=== PATIENT | male | born 1935 | race Caucasian/White ===

== ENCOUNTER 2018-09-16 18:53 | Emergency (ER) | payer MEDICARE, OTHER ==
[2018-09-16 19:42] LABS: #Basophils 0.2 thou/uL (0.0-0.2); #Lymphocytes 4.2 thou/uL (1.20-3.40); #Monocytes 1.3 thou/uL (0.11-0.59); #Neutrophils 5.9 thou/uL (1.40-6.50); %Basophils 1.3 % (0.0-1.0); %Eosinophils 8.1 % (0.0-10.0); %Lymphocytes 33.3 % (21.0-51.0); %Monocytes 10.4 % (0.0-10.0); %Neutrophils 46.9 % (42.0-75.0); Hemoglobin 13.7 g/dL (14.0-18.0); Mean Corpuscular HGB CONC 34.5 g/dL (32.0-36.0); Mean Corpuscular Hemoglobin 35.5 pg (27.0-31.0); Mean Platelet Volume 9.5 fL (7.4-10.4); Platelet Count 180 thou/uL (130-400); RBC Distribution Width 12.8 % (11.5-14.5); Red Blood Cell (RBC) Count 3.86 mill/uL (4.70-6.10); White Blood Cell (WBC) Count 12.5 thou/uL (4.8-10.8)
[2018-09-16 20:02] LABS: ALT (SGPT) 34 U/L (8-55); AST (SGOT) 25 U/L (5-34); Albumin 4.3 g/dL (3.4-4.8); Alkaline Phosphatase 73 U/L (40-150); Anion Gap 13 mmol/L (10-20); BUN (Urea Nitrogen) 30 mg/dL (8.4-25.7); Bilirubin, Total 1.5 mg/dL (0.2-1.2); CK (CPK) 75 U/L (30-200); Calc. Creatinine Clearance 0 mL/min (70-130); Calcium 9.3 mg/dL (7.8-10.44); Carbon Dioxide 27 mmol/L (23-31); Chloride 102 mmol/L (98-107); Estimated GFR-MDRD 65; Globulin 2.9 g/dL (2.4-3.5); Glucose 125 mg/dL (83-110); Potassium 3.9 mmol/L (3.5-5.1); Protein, Total 7.2 g/dL (5.8-8.1); Sodium 138 mmol/L (136-145)
--- NOTE | 2018-09-16 20:06 | RAD ---
2 views chest. HISTORY: Chest pain PA and lateral views of the chest obtained. Bilateral shoulder degenerative changes seen. No evidence of acute fractures, subluxations or bony lesion seen. The lungs are well aerated. No evidence of acute intrathoracic abnormality is noted. IMPRESSION: unremarkable 2 views chest.
== END 2018-09-17 00:40 ==
LOC: ERS 18:53
DX: R07.9 Chest pain, unspecified (principal); I10 Essential (primary) hypertension; E78.5 Hyperlipidemia, unspecified; Z87.891 Personal history of nicotine dependence; Z86.73 Personal history of transient ischemic attack (TIA), and cerebral infarction without residual deficits; Z79.82 Long term (current) use of aspirin; Z79.899 Other long term (current) drug therapy
CPT/HCPCS: 36415; 71046; 80053; 82550; 84484; 85025; 93005

== ENCOUNTER 2019-08-03 13:25 | Observation (INO) | payer MEDICARE, OTHER ==
[2019-08-03 14:08] LABS: #Basophils 0.2 thou/uL (0.0-0.2); #Eosinphils 0.3 thou/uL (0.0-0.7); #Lymphocytes 3.8 thou/uL (1.20-3.40); #Monocytes 1.3 thou/uL (0.11-0.59); #Neutrophils 5.9 thou/uL (1.40-6.50); %Basophils 1.5 % (0.0-1.0); %Eosinophils 2.2 % (0.0-10.0); %Lymphocytes 33.5 % (21.0-51.0); %Monocytes 11.6 % (0.0-10.0); %Neutrophils 51.2 % (42.0-75.0); Hemoglobin 13.2 g/dL (14.0-18.0); Mean Corpuscular HGB CONC 33.6 g/dL (32.0-36.0); Mean Platelet Volume 10.4 fL (7.4-10.4); Platelet Count 196 thou/uL (130-400); RBC Distribution Width 14.1 % (11.5-14.5); Red Blood Cell (RBC) Count 3.66 mill/uL (4.70-6.10); White Blood Cell (WBC) Count 11.4 thou/uL (4.8-10.8)
--- NOTE | 2019-08-03 14:10 | RAD ---
Chest one view HISTORY: Dyspnea. COMPARISON: 09/16/2018. FINDINGS: Cardiac silhouette is magnified by projection. Pulmonary vasculature is unremarkable. Mediastinum is midline with aortic calcification. No lobar consolidation or evidence of pneumothorax. Degenerative changes of the shoulders. desk monitor leads overlie the chest. IMPRESSION : Atherosclerosis. No active cardiopulmonary abnormalities are otherwise demonstrated.
[2019-08-03 14:24] LABS: Howell Jolly Bodies SLIGHT = 1-2 cells (100X) (None Seen); MDiff Complete? YES; Macrocytosis SLIGHT = 6-15 cells (100X) (0-5/hpf); Platelet Morphology Comment Appears Adequate; Schistocytes SLIGHT = 2-5 cells (100X) (0-1/hpf); Spherocytes SLIGHT = 1-5 cells (100X) (None Seen)
[2019-08-03 14:29] LABS: ALT (SGPT) 26 U/L (8-55); AST (SGOT) 21 U/L (5-34); Albumin 4.1 g/dL (3.4-4.8); Alkaline Phosphatase 76 U/L (40-110); Anion Gap 11 mmol/L (10-20); BUN (Urea Nitrogen) 25 mg/dL (8.4-25.7); Bilirubin, Total 1.4 mg/dL (0.2-1.2); Calc. Creatinine Clearance 0 mL/min (70-130); Calcium 9.4 mg/dL (7.8-10.44); Carbon Dioxide 30 mmol/L (23-31); Chloride 102 mmol/L (98-107); Estimated GFR-MDRD 69; Globulin 2.6 g/dL (2.4-3.5); Glucose 112 mg/dL (83-110); Potassium 3.9 mmol/L (3.5-5.1); Protein, Total 6.7 g/dL (5.8-8.1); Sodium 139 mmol/L (136-145)
[2019-08-03] MEDS ORDERED: Aspirin Chewable 81 MG TAB ONE (14:59)
--- NOTE | 2019-08-03 15:08 | PDOC.HOSPP ---
- Subjective Encounter Date: 08/03/19 Encounter Time: 13:45 - Objective Result Diagrams: 08/03/19 13:58 08/03/19 13:58
[2019-08-03 16:04] LABS: Base Excess-Venous 4.4 mmol/L (-2.0 to 3.0); Bicarbonate (HCO3v) 31.9 mmol/L (22.0-28.0); CO2 Tension (PvCO2) 59.4 mmHg (40.0-50.0); Calcium, Ionized 1.29 mmol/L (See Comments:); Chloride 100 mmol/L (98-107); Hemoglobin - Calc 13.3 g/dL (14.0-18.0); Potassium 4.5 mmol/L (3.5-5.1); Sodium 141 mmol/L (138-145); T. Carbon Dioxide 33.7 mmol/L (22.0-28.0); vO2 Saturation-calc 25.7 % (60.0-85.0)
[2019-08-03 18:04] VITALS: BMI 22.6
[2019-08-03 18:41] LABS: Troponin I 0.021 ng/mL (< 0.028)
[2019-08-03] MEDS ORDERED: Ondansetron PF 4 MG/2 ML Vial IVP PRN (19:27)
[2019-08-03] MEDS ORDERED: Ondansetron ODT 4 MG TAB PO PRN (19:27)
[2019-08-03] MEDS ORDERED: Calcium Carbonate 500 MG ChewTAB PO PRN (19:27)
[2019-08-03] MEDS ORDERED: Acetaminophen 325 MG TAB PO PRN (19:27)
[2019-08-03] MEDS ORDERED: Nitroglycerin 0.4 MG TAB (25 Tab Bottle) PO PRN (19:29)
[2019-08-03] MEDS ORDERED: hydrOXYzine 25 MG TAB PO PRN (19:31)
[2019-08-03] MEDS ORDERED: Artificial Tears 18 DROP/0.9 ML EA EYE PRN (19:32)
[2019-08-03] MEDS ORDERED: hydrALAZINE 20 MG/ML VIAL SLOW IVP PRN (19:33)
--- NOTE | 2019-08-03 19:33 | HP ---
PRIMARY CARE: [facility]. CHIEF COMPLAINT: Shortness of breath. HISTORY OF PRESENT ILLNESS: The patient is an 84-year-old male with coronary artery disease and hypertension, presented to the emergency room with above complaints. History obtained from the patient and the patient's daughter over the phone. The patient's daughter used to work as an RN in this hospital. Over the last 1 to 2 weeks, the patient developed gradual worsening shortness of breath. The shortness of breath got worse today. The shortness of breath gets worse on [id number] exertion. He also had some cough with minimal sputum. There was some questionable chest tightness earlier today. He denies any orthopnea, paroxysmal nocturnal dyspnea, or lower extremity swelling. No recent immobilization, travel, fever, chills, or sick contacts reported. In the emergency room, his initial vital signs showed temperature 98.1, respirations of 18, pulse of 72 with a blood pressure of 133/61, and O2 saturation 98% on room air. His EKG showed sinus bradycardia without significant ST-T wave changes. He is on aspirin and Plavix at home. A chest x-ray was negative for infiltrate or edema. PAST MEDICAL HISTORY: 1. Coronary artery disease status post stent placement in the past. He also had a repeat catheterization in August of 2018 at [facility]. His stents were patent. Nitroglycerin was added. Lipitor was increased from 20 to 40 at that time. 2. History of TIA in December of 2012. Plavix was added at that time. 3. History of herpes zoster. 4. Hypertension. 5. Hyperlipidemia. 6. Seasonal allergies. 7. Eczema. PAST SURGICAL HISTORY: 1. Cardiac stent placement in . 2. Cervical spine surgery. 3. Splenectomy. 4. Bilateral carpal tunnel surgery. 5. Multiple eye surgeries. FAMILY HISTORY: Mother with CVA and father with coronary artery disease. SOCIAL HISTORY: The patient is a former smoker. No alcohol or drug use. He currently lives at home with his family. He is full code. His daughter is the primary decision maker. CURRENT HOME MEDICATIONS: 1. Allopurinol 300 mg daily. 2. Aspirin 81 mg daily. 3. Lipitor 40 mg at bedtime. 4. Plavix 75 mg daily. 5. Hydrochlorothiazide 25 mg daily. 6. Lisinopril 20 mg daily. 7. Metoprolol 25 mg b.i.d. 8. Sublingual nitroglycerin as needed. 9. The patient is on several eyedrops as well. 10. Methotrexate 10 mg on Sundays. 11. Folic acid 1 mg from Sunday to Sunday. REVIEW OF SYSTEMS: All other review of systems was reviewed and were found. PHYSICAL EXAMINATION: VITAL SIGNS: As discussed above. GENERAL: An 84-year-old male, in no apparent distress. Denies any chest discomfort at this time. HEENT: Head, atraumatic and normocephalic. Sclerae anicteric. Moist mucous membranes. No oral lesion. NECK: Supple. No JVD. No carotid bruit. LUNGS: Clear to auscultation bilaterally. No wheezing, rales, or rhonchi. HEART: S1 and S2 present. Regular rate and rhythm. No rubs or gallops. ABDOMEN: Soft and nontender. Bowel sounds present. No rebound or guarding. No costovertebral angle tenderness. EXTREMITIES: No edema or calf tenderness. NEUROLOGIC: Grossly nonfocal. Moves all 4 extremities. Power was 5/5 in all extremities. SKIN: Warm and dry. LYMPH NODES: No palpable lymph nodes in the neck. PERIPHERAL VASCULAR: Radial pulses palpable bilaterally. MUSCULOSKELETAL: No joint swelling or tenderness. LABORATORY FINDINGS: 1. CBC showed WBC 11.4 with hemoglobin 13.2, hematocrit 39.2 with platelet of 196, and lymphocytes were normal. 2. VBG showed pH of 7.33 with pCO2 of 59.4 and pO2 of 19.2. 3. Chemistry showed sodium 139, potassium 3.9, chloride 102, bicarb 30, BUN 25, and creatinine 1.03. 4. EKG by my review as discussed above. Chest x-ray by my review as discussed above. IMPRESSION: 1. Chest discomfort with shortness of breath, rule out acute coronary syndrome. 2. Hypertension. 3. History of transient ischemic attack on aspirin and Plavix. 4. Hyperlipidemia. 5. Coronary artery disease status post stent placement. 6. Chronic kidney disease, stage 3. 7. Chronic eczema on methotrexate. 8. Glaucoma. 9. Gout. 10. Coronary artery disease status post stent placement. 11. Chronic anemia suspected due to nutritional deficiency. PLAN: 1. The patient will be monitored on the telemetry unit. Echocardiogram will be obtained. We will keep him n.p.o. past midnight. Serial troponins will be obtained. His home medications will be restarted. His last cardiac catheterization was less than 1 year ago. Continue aspirin and Plavix with beta blockers and statins. 2. The case was discussed with the patient and the daughter in detail. They stated understanding. Job ID: [id number]
[2019-08-03] MEDS: Metoprolol Tartrate 25 MG TAB PO SCH (20:08)
[2019-08-03] MEDS: DorzolamidE/Timolol 2%/0.5% Ophth Soln 10 ml Bottle EA EYE SCH (20:09)
[2019-08-03 20:52] LABS: Troponin I Less than 0.010 ng/mL (< 0.028)
[2019-08-03] MEDS ORDERED: Betamethasone 0.1% Cream 15 GM TUBE TOP SCH (21:00)
[2019-08-03] MEDS ORDERED: [UNRECOGNIZED DRUG - OTHER] EA EYE SCH (21:00)
[2019-08-03] MEDS ORDERED: Clopidogrel Bisulfate 75 MG TAB PO SCH (21:00)
[2019-08-03] MEDS ORDERED: Latanoprost 0.005% Ophth Soln 2.5 ml Bottle EA EYE SCH (21:00)
[2019-08-03] MEDS ORDERED: Atorvastatin Calcium 40 MG TAB PO SCH (21:00)
[2019-08-04] MEDS ORDERED: Fluticasone Propionate Nasal Spray 16 gm Bottle NASAL SCH (09:00)
[2019-08-04] MEDS ORDERED: Allopurinol 300 MG TAB PO SCH (09:00)
[2019-08-04] MEDS ORDERED: Aspirin Chewable 81 MG TAB PO SCH (09:00)
[2019-08-04] MEDS ORDERED: Folic Acid 1 MG TAB PO SCH (09:00)
[2019-08-04] MEDS ORDERED: Fish Oil 1,000 MG CAP PO SCH (09:00)
[2019-08-04] MEDS ORDERED: Lisinopril 20 MG TAB PO SCH (09:00)
--- NOTE | 2019-08-04 12:27 | NM ---
EXAM: NM Cardiac Stress W EF WF PROVIDED CLINICAL HISTORY: Chest pain COMPARISON: None FINDINGS: There is a small defect seen in the anterior left ventricular wall on the stress acquisition with sug gestion of mild reversibility on resting acquisition. Quantitative analysis does not show significant reversible defect. Gated images show normal ventricular wall motion and wall thickening. Calculated left ventricular ejection fraction is calculated at 62%. IMPRESSION: 1. Equivocal myocardial perfusion study with a small area of mild ischemia involving the anterior lef t ventricular wall. 2. Normal LVEF.
[2019-08-04] MEDS: Metoprolol Tartrate 25 MG TAB PO SCH (12:28)
[2019-08-04] MEDS: DorzolamidE/Timolol 2%/0.5% Ophth Soln 10 ml Bottle EA EYE SCH (12:30)
[2019-08-04] MEDS ORDERED: Regadenoson 0.4 MG/5 ML SYRINGE ONE (14:09)
[2019-08-04 16:00] VITALS: BP 157/67; TEMP 98.6
--- NOTE | 2019-08-04 18:43 | CON ---
DATE OF CONSULTATION: 08/04/2019 REASON FOR CONSULTATION: Chest pain. PRIMARY LIVESTOCK FARMER: None. HISTORY OF PRESENT ILLNESS: Mr. Elizalde is a very pleasant 84-year-old gentleman with history of CAD, status post stent placement. This occurred several years ago per patient. His [facility]. He states he underwent coronary angiography in spring of last year at the [place]. He was found to have patent stents. No further intervention recommended per patient. He recently presented with shortness of breath and mild chest pressure. Pain was not exertion related. His CK troponin was negative. PAST MEDICAL HISTORY: CAD, status post stent placement; herpes zoster; hypertension; hyperlipidemia; seasonal allergies; stent placement; splenectomy; and eye surgery. HOME MEDICATIONS: Reviewed. 1. Allopurinol. 2. Aspirin. 3. Lipitor. 4. Plavix. 5. Hydrochlorothiazide. 6. Lisinopril. 7. Metoprolol. 8. Methotrexate. 9. Folic acid. FAMILY HISTORY: Negative for CAD. SOCIAL HISTORY: Previous tobacco use. REVIEW OF SYSTEMS: A 10-point review of systems is reviewed and is as above, otherwise negative. PHYSICAL EXAMINATION: GENERAL: Patient is a pleasant male who is in no acute distress. The patient appears their stated age. VITAL SIGNS: Blood pressure 120/70, pulse 80, and respirations 20. NEUROLOGIC: The patient is alert and oriented x3 with no focal neurologic deficits. HEENT: Sclerae without icterus. Mouth has moist mucous membranes with normal pallor. NECK: No JVD. Carotid upstroke brisk. No bruits bilaterally. LUNGS: Clear to auscultation with unlabored respirations. BACK: No scoliosis or kyphosis. CARDIAC: Regular rate and rhythm with normal S1 and S2. No S3 or S4 noted. No significant rubs, murmurs, thrills, or gallops noted throughout the precordium. PMI is not displaced. There is no parasternal heave. ABDOMEN: Soft, nontender, nondistended. No peritoneal signs present. No hepatosplenomegaly. No abnormal striae. EXTREMITIES: 2+ femoral and 2+ dorsalis pedis pulses. No cyanosis, clubbing, or edema. SKIN: No gross abnormalities. DIAGNOSTIC STUDIES: Stress and rest myocardial perfusion study small area of questionable mild ischemia along the anterior wall with normal LVEF. IMPRESSION: 1. Atypical chest pain. 2. Coronary artery disease. 3. Status post stent placement. RECOMMENDATIONS: Mr. Elizalde's symptoms are not felt to be consistent with angina. He had an angiogram performed last year with patent stents per patient. His stress study as most is felt to be low risk given a mild area of ischemia and a small distribution. We would recommend continue medical therapy. Add Imdur 30 mg p.o. q.a.m. Continue Plavix in addition to aspirin and beta gen therapy. Plan is to follow up Mr. Elizalde as an outpatient in 1 to 2 weeks. Job ID: [id number]
--- NOTE | 2019-08-04 19:12 | DIS ---
DATE OF ADMISSION: 08/03/2019 DATE OF DISCHARGE: 08/04/2019 DISCHARGE DISPOSITION: Home. FOLLOWUP: 1. Follow up with primary care physician at the [facility] in 1 week. 2. Follow up with Dr. Chau in 1 week. ALLERGIES: THE PATIENT IS ALLERGIC TO MORPHINE. DISCHARGE MEDICATIONS: Isosorbide mononitrate 30 mg daily, all other home medications were left unchanged. INPATIENT ORTHOPEDIC SHOE FITTER: Cardiology, Dr. Chau. BRIEF HOSPITAL COURSE: The patient is an 84-year-old male with coronary artery disease, status post stent placement, presented to the emergency room with chest discomfort along with shortness of breath. Please refer to the history and physical for further details. The patient was admitted to the hospital with a diagnosis of chest discomfort, rule out acute coronary syndrome. His serial troponins were negative. He underwent an echocardiogram that showed ejection fraction 55% to 60% with mild concentric left ventricular hypertrophy and diastolic dysfunction. It also showed mild mitral regurgitation and mild tricuspid regurgitation. A Cardiolite stress test was performed that showed a small area of mild ischemia involving the anterior left ventricular wall. He was evaluated by Cardiology. Isosorbide mononitrate was added. He was advised to continue his aspirin and Plavix along with beta blockers and statins. He has been cleared by Cardiology for discharge. FINAL DIAGNOSES: 1. Chest discomfort, acute coronary syndrome ruled out. 2. Abnormal stress test. 3. Hypertension. 4. History of transient ischemic attack, on aspirin and Plavix. 5. Hyperlipidemia. 6. Coronary artery disease, status post stent placement. 7. Chronic kidney disease, stage 3. 8. Chronic eczema, on methotrexate. 9. Glaucoma. 10. Gout. 11. History of coronary artery disease, status post stent placement. 12. Chronic anemia, suspected due to nutritional deficiency. 13. Chronic diastolic heart failure. 14. Mild mitral regurgitation. 15. Mild tricuspid regurgitation. The patient and the family understands the plan of care. Job ID: [id number]
--- NOTE | 2019-08-06 14:08 | EKG ---
Test Reason : SOB Blood Pressure : / mmHG Vent. Rate : 052 BPM Atrial Rate : 052 BPM P-R Int : 144 ms QRS Dur : 104 ms QT Int : 432 ms P-R-T Axes : 027 034 050 degrees QTc Int : 401 ms Sinus bradycardia Otherwise normal ECG Confirmed by PUSHPA THOMPSON ([id number]), assignment editor DAHIANA HURST ([id number]) on 08/06/2019 2:08:12 PM Referred By: ANITA Confirmed By:PUSHPA Walker
[2019-08-10] MEDS ORDERED: Methotrexate Sodium 2.5 MG TAB PO SCH (09:00)
== END 2019-08-04 16:41 | disposition home or self-care (01) ==
LOC: ERS 13:25 → 2SW 17:29
PROVIDERS: ADMIT Internal Medicine; ATTEND Internal Medicine
DX: R07.89 Other chest pain (principal); R06.02 Shortness of breath; I13.0 Hypertensive heart and chronic kidney disease with heart failure and stage 1 through stage 4 chronic kidney disease, or unspecified chronic kidney disease; I50.32 Chronic diastolic (congestive) heart failure; N18.3 Chronic kidney disease, stage 3 (moderate); I25.10 Atherosclerotic heart disease of native coronary artery without angina pectoris; I08.1 Rheumatic disorders of both mitral and tricuspid valves; D64.9 Anemia, unspecified; E78.5 Hyperlipidemia, unspecified; L30.9 Dermatitis, unspecified; H40.9 Unspecified glaucoma; M10.9 Gout, unspecified; Z79.82 Long term (current) use of aspirin; Z79.899 Other long term (current) drug therapy; Z86.73 Personal history of transient ischemic attack (TIA), and cerebral infarction without residual deficits; Z87.891 Personal history of nicotine dependence; Z95.5 Presence of coronary angioplasty implant and graft; Z88.5 Allergy status to narcotic agent
CPT/HCPCS: 36415; 71045; 78452; 80053; 82330; 82803; 83880; 84484; 85025; 93005; 93017; 93306; A9500; G0378; J2785

== ENCOUNTER 2019-08-05 19:43 | Emergency (ER) | payer MEDICARE, OTHER ==
[2019-08-05 20:37] LABS: #Basophils 0.2 thou/uL (0.0-0.2); #Eosinphils 0.5 thou/uL (0.0-0.7); #Lymphocytes 4.9 thou/uL (1.20-3.40); #Monocytes 1.5 thou/uL (0.11-0.59); #Neutrophils 6.2 thou/uL (1.40-6.50); %Basophils 1.6 % (0.0-1.0); %Eosinophils 3.9 % (0.0-10.0); %Lymphocytes 36.6 % (21.0-51.0); %Monocytes 11.4 % (0.0-10.0); %Neutrophils 46.6 % (42.0-75.0); Mean Corpuscular HGB CONC 33.7 g/dL (32.0-36.0); Mean Corpuscular Hemoglobin 35.9 pg (27.0-31.0); Mean Platelet Volume 10.5 fL (7.4-10.4); Platelet Count 178 thou/uL (130-400); RBC Distribution Width 14.2 % (11.5-14.5); Red Blood Cell (RBC) Count 3.35 mill/uL (4.70-6.10); White Blood Cell (WBC) Count 13.3 thou/uL (4.8-10.8)
[2019-08-05 20:58] LABS: ALT (SGPT) 31 U/L (8-55); AST (SGOT) 27 U/L (5-34); Albumin 3.7 g/dL (3.4-4.8); Alkaline Phosphatase 67 U/L (40-110); Anion Gap 12 mmol/L (10-20); BUN (Urea Nitrogen) 37 mg/dL (8.4-25.7); Bilirubin, Total 0.7 mg/dL (0.2-1.2); CK (CPK) 49 U/L (30-200); Calc. Creatinine Clearance 0 mL/min (70-130); Calcium 8.3 mg/dL (7.8-10.44); Carbon Dioxide 28 mmol/L (23-31); Chloride 102 mmol/L (98-107); Estimated GFR-MDRD 53; Globulin 2.6 g/dL (2.4-3.5); Glucose 96 mg/dL (83-110); Protein, Total 6.3 g/dL (5.8-8.1); Sodium 138 mmol/L (136-145)
--- NOTE | 2019-08-05 21:00 | RAD ---
PORTABLE CHEST: 08/05/19 PROVIDED CLINICAL HISTORY: Shortness of breath. FINDINGS: The cardiac and mediastinal silhouette appears within normal limits. No focal consolidation, pleural fluid or pneumothorax apparent. IMPRESSION: No evidence for an acute cardiomediastinal process. POS: RADHA
--- NOTE | 2019-08-06 13:27 | EKG ---
Test Reason : Blood Pressure : / mmHG Vent. Rate : 065 BPM Atrial Rate : 065 BPM P-R Int : 144 ms QRS Dur : 090 ms QT Int : 410 ms P-R-T Axes : 039 037 065 degrees QTc Int : 426 ms Normal sinus rhythm Normal ECG Confirmed by THIERRY HERNÁNDEZ, GENA Medellin ([id number]), supervising editor news reel DAHIANA HURST ([id number]) on 08/06/2019 1:27:01 PM Referred By: Confirmed By:GENA GUADARRAMA MD
== END 2019-08-05 21:50 | disposition home or self-care (01) ==
LOC: ERS 19:43
DX: R06.02 Shortness of breath (principal); E78.5 Hyperlipidemia, unspecified; E78.00 Pure hypercholesterolemia, unspecified; I10 Essential (primary) hypertension; Z86.73 Personal history of transient ischemic attack (TIA), and cerebral infarction without residual deficits; Z87.891 Personal history of nicotine dependence; Z79.82 Long term (current) use of aspirin; Z79.899 Other long term (current) drug therapy
CPT/HCPCS: 36415; 71045; 80053; 82550; 83880; 84484; 85025; 93005

== ENCOUNTER 2019-08-11 10:15 | Emergency (ER) | payer OTHER ==
[2019-08-11 11:31] LABS: #Basophils 0.1 thou/uL (0.0-0.2); #Eosinphils 0.5 thou/uL (0.0-0.7); #Lymphocytes 2.9 thou/uL (1.20-3.40); #Monocytes 1.4 thou/uL (0.11-0.59); #Neutrophils 6.3 thou/uL (1.40-6.50); %Basophils 1.2 % (0.0-1.0); %Eosinophils 4.5 % (0.0-10.0); %Lymphocytes 25.7 % (21.0-51.0); %Monocytes 12.2 % (0.0-10.0); %Neutrophils 56.5 % (42.0-75.0); Mean Corpuscular HGB CONC 31.7 g/dL (32.0-36.0); Mean Corpuscular Hemoglobin 34.4 pg (27.0-31.0); Mean Platelet Volume 10.5 fL (7.4-10.4); Platelet Count 184 thou/uL (130-400); RBC Distribution Width 14.2 % (11.5-14.5); Red Blood Cell (RBC) Count 3.48 mill/uL (4.70-6.10); White Blood Cell (WBC) Count 11.2 thou/uL (4.8-10.8)
--- NOTE | 2019-08-11 11:36 | RAD ---
RADIOGRAPH CHEST 1 VIEW: DATE: 08/11/2019 HISTORY: 84-year-old male with dyspnea FINDINGS: There is no airspace density, pulmonary edema, or pneumothorax. The lateral costophrenic angles are n ot effaced. IMPRESSION: No acute pulmonary findings.
[2019-08-11 11:51] LABS: ALT (SGPT) 27 U/L (8-55); AST (SGOT) 22 U/L (5-34); Albumin 3.7 g/dL (3.4-4.8); Alkaline Phosphatase 68 U/L (40-110); Anion Gap 12 mmol/L (10-20); BUN (Urea Nitrogen) 27 mg/dL (8.4-25.7); Bilirubin, Total 0.8 mg/dL (0.2-1.2); Calc. Creatinine Clearance 0 mL/min (70-130); Carbon Dioxide 23 mmol/L (23-31); Chloride 106 mmol/L (98-107); Estimated GFR-MDRD 74; Globulin 2.9 g/dL (2.4-3.5); Glucose 102 mg/dL (83-110); Potassium 4.2 mmol/L (3.5-5.1); Protein, Total 6.6 g/dL (5.8-8.1); Sodium 137 mmol/L (136-145)
[2019-08-11] MEDS ORDERED: Iopamidol 370 76% 100 ML VIAL ONE (11:54)
--- NOTE | 2019-08-11 13:54 | CT ---
Exam: CT angiogram of the chest HISTORY: Shortness of breath. COMPARISON: None TECHNIQUE: CT angiogram of the chest is performed in the axial plane. Three-dimensional reformatted i mages are submitted for interpretation FINDINGS: Mediastinum: No mass, lymphadenopathy or hematoma. HEART: Normal size. No significant pericardial fluid. There are coronary artery calcifications. Aorta: No aneurysm or dissection Upper solid abdominal viscera: No acute abnormality. 1.6 x 1.3 cm left renal cortical cyst Trachea and central bronchi: Patent Pleural spaces: No pleural effusion. Lung parenchyma: Chronic changes in the lung parenchyma. Lung nodules: Right lung: Solid nodule with spiculation in the right lower lobe measuring 0.6 x 0.5 c m. Left lung: No suspicious masses or nodules. Linear scarring in the left upper lobe. Pneumothorax: None Osseous structures: No lytic or blastic lesions Pulmonary arteries: Adequate contrast opacification pulmonary arterial system to the level of segment al arteries. No filling defect to suggest pulmonary embolism IMPRESSION: 1. No evidence of pulmonary artery embolism to the level of the segmental arteries. 2. Solid nodule in the right lower lobe. Code lung nodule
== END 2019-08-11 15:35 | disposition home or self-care (01) ==
LOC: ERS 10:15
DX: R06.00 Dyspnea, unspecified (principal); Z20.828 Contact with and (suspected) exposure to other viral communicable diseases; E78.5 Hyperlipidemia, unspecified; E78.00 Pure hypercholesterolemia, unspecified; Z86.73 Personal history of transient ischemic attack (TIA), and cerebral infarction without residual deficits; I10 Essential (primary) hypertension; Z87.891 Personal history of nicotine dependence; Z79.899 Other long term (current) drug therapy; Z79.82 Long term (current) use of aspirin
CPT/HCPCS: 36415; 71045; 71275; 80053; 83880; 84484; 85025; 85379; 87635; 93005; Q9967; U0003

== ENCOUNTER 2019-08-15 16:46 | Emergency (ER) | payer OTHER, MEDICAID ==
--- NOTE | 2019-08-15 18:34 | RAD ---
CHEST ONE VIEW: 08/15/19 HISTORY: Chest pain. COMPARISON: Radiograph 08/11/2019. FINDINGS: High grade degenerative disease of both glenohumeral joints with subacromial space narrowing. Heart s ize is enlarged. No confluent air space consolidation, pneumothorax or effusion. IMPRESSION: No acute intrathoracic abnormality. Chronic findings. POS: HOME
== END 2019-08-15 19:27 | disposition home or self-care (01) ==
LOC: ERS 16:46
DX: R07.89 Other chest pain (principal); E78.5 Hyperlipidemia, unspecified; E78.00 Pure hypercholesterolemia, unspecified; I10 Essential (primary) hypertension; Z87.891 Personal history of nicotine dependence; Z86.73 Personal history of transient ischemic attack (TIA), and cerebral infarction without residual deficits; Z79.82 Long term (current) use of aspirin; Z79.899 Other long term (current) drug therapy
CPT/HCPCS: 71045; 93005

== ENCOUNTER 2019-08-17 23:29 | Emergency (ER) | payer MEDICAID, MEDICARE, OTHER ==
[2019-08-18 00:22] LABS: Eosinophils 4 % (0-10); Hemoglobin 12.4 g/dL (14.0-18.0); Lymphocytes 33 % (21-51); MDiff Complete? YES; Mean Corpuscular Hemoglobin 35.9 pg (27.0-31.0); Mean Platelet Volume 10.6 fL (7.4-10.4); Monocytes 13 % (0-10); Neutrophil 50 % (42-75); Platelet Count 197 thou/uL (130-400); Platelet Morphology Comment Appears Adequate; RBC Distribution Width 14.1 % (11.5-14.5); Red Blood Cell (RBC) Count 3.44 mill/uL (4.70-6.10)
[2019-08-18 00:41] LABS: ALT (SGPT) 32 U/L (8-55); AST (SGOT) 25 U/L (5-34); Albumin 4.2 g/dL (3.4-4.8); Alkaline Phosphatase 71 U/L (40-110); Anion Gap 12 mmol/L (10-20); BUN (Urea Nitrogen) 25 mg/dL (8.4-25.7); Bilirubin, Total 0.7 mg/dL (0.2-1.2); Calc. Creatinine Clearance 0 mL/min (70-130); Calcium 8.8 mg/dL (7.8-10.44); Carbon Dioxide 26 mmol/L (23-31); Chloride 104 mmol/L (98-107); Estimated GFR-MDRD 58; Globulin 2.5 g/dL (2.4-3.5); Glucose 96 mg/dL (83-110); Potassium 3.8 mmol/L (3.5-5.1); Protein, Total 6.7 g/dL (5.8-8.1); Sodium 138 mmol/L (136-145)
== END 2019-08-18 01:16 | disposition home or self-care (01) ==
LOC: ERS 23:29
DX: R06.00 Dyspnea, unspecified (principal); E78.5 Hyperlipidemia, unspecified; E78.00 Pure hypercholesterolemia, unspecified; I10 Essential (primary) hypertension; Z87.891 Personal history of nicotine dependence; Z86.73 Personal history of transient ischemic attack (TIA), and cerebral infarction without residual deficits; Z79.899 Other long term (current) drug therapy; Z79.82 Long term (current) use of aspirin
CPT/HCPCS: 36415; 80053; 83880; 84484; 85025; 93005

== ENCOUNTER 2019-11-18 23:39 | Emergency (ER) | payer MEDICAID, MEDICARE, OTHER ==
--- NOTE | 2019-11-19 07:10 | CT ---
PRELIMINARY REPORT/[facility]/EMERGENCY AFTER HOURS PROCEDURE: EXAM: CT Cervical Spine Without Intravenous Contrast. CLINICAL HISTORY: MECHANICAL FALL INTO BATHTUB. HIT BACK OF HEAD ON TILE. TAKES PLAVIX. DENIES N/V S/P HITTING HEAD. DE NIES LOC. HAS METAL RODS IN NECK PLACED "YEARS AGO". TECHNIQUE: Axial computed tomography images of the cervical spine without intravenous contrast. Sagittal and cor onal reformations performed. COMPARISON: None provided. FINDINGS: BONES: No acute fracture or focal osseous lesion. Bony alignment is anatomic. The vertebral body cages present from C4-C6. Anterior spinal fusion mathieu dware from C6-C7. Posterior paraspinal hardware from C3-C7. There is fusion of the posterior elemen ts. DISCS / DEGENERATIVE CHANGES: Mild disc narrowing and osteophytosis at C2-C3, C6-C7, and C7-T1. Mild central stenosis and moderate right foraminal stenosis at C2-C3. Mild central stenosis at C3-C4 . Moderate bilateral foraminal stenosis at C4-C5. Moderate right-sided foraminal stenosis at C5-C6. Moderate bilateral foraminal stenosis at C6-C7. Moderate bilateral foraminal stenosis at C7-T1. SOFT TISSUES: No prevertebral soft tissue swelling. No apical pneumothorax. IMPRESSION: No acute cervical spine fracture or dislocation. ELECTRONICALLY SIGNED BY: Tony Castillo MD Nov 19, 2019 12:32:12 AM CDT This report is intended for review by the ordering physician only, in accordance of law. If you recei ve this report in error, please call [facility] at [phone]. FINAL REPORT EMERGENCY AFTER HOURS CT OF THE CERVICAL SPINE WITHOUT CONTRAST: FINDINGS/IMPRESSION: I agree with the findings and impression given in the preliminary report per [facility] physici an. There are extensive postoperative changes of the cervical spine without acute osseous abnormality. POS: EAA
--- NOTE | 2019-11-19 07:12 | CT ---
PRELIMINARY REPORT/[facility]/EMERGENCY AFTER HOURS PROCEDURE: EXAM: CT Head Without Intravenous Contrast. CLINICAL HISTORY: MECHANICAL FALL INTO BATHTUB. HIT BACK OF HEAD ON TILE. TAKES PLAVIX. DENIES N/V S/ P HITTING HEAD. DENIES LOC. HAS METAL RODS IN NECK PLACED "YEARS AGO". TECHNIQUE: Axial computed tomography images of the head/brain without intravenous contrast. COMPARISON: None provided. FINDINGS: BRAIN: No acute intraparenchymal hemorrhage. No mass lesion. No CT evidence for acute territorial infarct. N o midline shift. Bifrontal hypodense CSF density fluid collections measuring up to 8 mm bilaterally. Mild generalized cerebral atrophy. Arteriosclerosis. ORBITS: The orbits are unremarkable. SINUSES AND MASTOIDS: Opacification of several ethmoid air cells. The other paranasal sinuses and mastoid air cells are cl ear. SOFT TISSUES: No significant facial or scalp soft tissue swelling evident. No radiopaque foreign body is seen. BONES: No acute skull fracture. IMPRESSION: No acute intracranial abnormality. CSF density bifrontal extra axial fluid collections which may represent CSF hygromas. Mild generalized cerebral atrophy. Inflammatory changes in the ethmoid air cells. ELECTRONICALLY SIGNED BY: Tony Castillo MD Nov 19, 2019 12:27:28 AM CDT This report is intended for review by the ordering physician only, in accordance of law. If you recei ve this report in error, please call [facility] at [phone]. FINAL REPORT EMERGENCY AFTER HOURS CT OF THE BRAIN WITHOUT CONTRAST: FINDINGS/IMPRESSION: I agree with the findings and impression given in the preliminary report per [facility] physici an. No evidence of acute intracranial abnormality. POS: NANCY
== END 2019-11-19 00:55 | disposition home or self-care (01) ==
LOC: ERS 23:39
DX: Z04.3 Encounter for examination and observation following other accident (principal); E78.5 Hyperlipidemia, unspecified; E78.00 Pure hypercholesterolemia, unspecified; I10 Essential (primary) hypertension; Z87.891 Personal history of nicotine dependence; Z79.82 Long term (current) use of aspirin; Z79.899 Other long term (current) drug therapy; W18.2XXA Fall in (into) shower or empty bathtub, initial encounter
CPT/HCPCS: 70450; 72125

== ENCOUNTER 2022-03-28 15:45 | Inpatient (IN) | payer MEDICARE, OTHER ==
[2022-03-28 16:59] LABS: #Basophils 0.1 thou/uL (0.0-0.2); #Eosinphils 0.1 thou/uL (0.0-0.7); #Lymphocytes 2.1 thou/uL (1.20-3.40); #Monocytes 1.7 thou/uL (0.11-0.59); #Neutrophils 9.6 thou/uL (1.40-6.50); %Basophils 0.5 % (0.0-1.0); %Eosinophils 0.7 % (0.0-10.0); %Lymphocytes 15.5 % (21.0-51.0); %Monocytes 12.8 % (0.0-10.0); %Neutrophils 70.5 % (42.0-75.0); Hemoglobin 12.5 g/dL (14.0-18.0); Mean Corpuscular HGB CONC 32.6 g/dL (32.0-36.0); Mean Platelet Volume 10.3 fL (7.4-10.4); Platelet Count 189 10x3/uL (130-400); RBC Distribution Width 13.8 % (11.5-14.5); Red Blood Cell (RBC) Count 3.48 mill/uL (4.70-6.10); White Blood Cell (WBC) Count 13.6 10x3/uL (4.8-10.8)
[2022-03-28 17:11] LABS: ALT (SGPT) 44 U/L (8-55); AST (SGOT) 43 U/L (5-34); Alkaline Phosphatase 109 U/L (40-110); Anion Gap 15 mmol/L (10-20); BUN (Urea Nitrogen) 32 mg/dL (8.4-25.7); Bilirubin, Total 2.1 mg/dL (0.2-1.2); Calc. Creatinine Clearance 0 mL/min (70-130); Calcium 9.1 mg/dL (7.8-10.44); Carbon Dioxide 22 mmol/L (23-31); Chloride 108 mmol/L (98-107); Estimated GFR 67; Glucose 100 mg/dL (83-110); Potassium 3.9 mmol/L (3.5-5.1); Sodium 141 mmol/L (136-145)
[2022-03-28 17:17] LABS: MDiff Complete? YES; Macrocytosis SLIGHT = 6-15 cells (100X) (0-5/hpf); Ovalocytes SLIGHT = 2-5 cells (100X) (0-1/hpf); Platelet Morphology Comment Appears Adequate; Polychromasia SLIGHT = 2-3 cells (100X) (0-2/hpf); Schistocytes SLIGHT = 2-5 cells (100X) (0-1/hpf)
[2022-03-28 17:33] LABS: CKMB 4.6 ng/mL (0-6.6)
[2022-03-28] MEDS ORDERED: hydrALAZINE 20 MG/ML VIAL ONE ×2 (17:55→19:13)
[2022-03-28] MEDS ORDERED: Dextrose 50% Abboject 50 ML SYRINGE SLOW IVP PRN (17:58)
[2022-03-28] MEDS ORDERED: Insulin Regular 300 UNITS/3 ML VIAL SC PRN (17:58)
[2022-03-28] MEDS ORDERED: Dextrose 5% in Water 1,000 ML IV PRN (17:58)
[2022-03-28] MEDS ORDERED: Ondansetron PF 4 MG/2 ML Vial IVP PRN (17:58)
[2022-03-28] MEDS ORDERED: Labetalol HCl 100 MG/20 ML VIAL SLOW IVP PRN (18:03)
[2022-03-28] MEDS ORDERED: Fentanyl 100 MCG/2 ML VIAL SLOW IVP PRN (18:05)
[2022-03-28] MEDS ORDERED: Acetaminophen 500 MG TAB PO SCH (18:15)
[2022-03-28 18:34] LABS: INR-International Normal Ratio 1.1; PTT 32.1 sec (22.9-36.1); Prothrombin Time 14.2 sec (12.0-14.7)
[2022-03-28] MEDS: Sodium Chloride 0.9% 1,000 ML IV SCH (19:05)
[2022-03-28 19:14] LABS: Bacteria/HPF None Seen HPF (None Seen); Bilirubin Negative (Negative); Blood, Urine Negative (Negative); Clarity Clear (Clear); Glucose, Urine (Dipstick) Normal (Negative); Ketone, Urine 10 mg/dL (Negative); Leukocyte Negative Leu/uL (Negative); Mucous/LPF Rare LPF (<2+); Nitrite Negative (Negative); Protein, Urine (Dipstick) 30 mg/dL (Neg-Trace); RBC/HPF 0-3 HPF (0-3); Specific Gravity, Urine 1.018 (1.002-1.036); Squamous Epithelial 0-3 HPF (0-3); Urobilinogen Normal mg/dL (Less than 2); WBC/HPF 0-3 HPF (0-3)
[2022-03-28] MEDS: hydrALAZINE 20 MG/ML VIAL SLOW IVP PRN ×2 (19:32→23:24)
[2022-03-28 19:52] LABS: SARS-CoV-2 NAA Rapid Test Not Detected (NotDetected)
[2022-03-28] MEDS: Metoprolol Tartrate 25 MG TAB PO SCH (22:06)
[2022-03-28] MEDS: Senokot S 8.6-50 MG TAB PO SCH (22:07)
[2022-03-28] MEDS: Famotidine/PF 20 mg/2ml Vial SLOW IVP SCH (22:08)
[2022-03-28 23:13] LABS: Troponin I 0.049 ng/mL (< 0.028)
[2022-03-29] MEDS: Acetaminophen 500 MG TAB PO SCH ×2 (00:55→05:19)
[2022-03-29 03:37] VITALS: BMI 20.4
[2022-03-29 03:58] LABS: #Basophils 0.1 thou/uL (0.0-0.2); #Eosinphils 0.1 thou/uL (0.0-0.7); #Lymphocytes 2.7 thou/uL (1.20-3.40); #Monocytes 2.1 thou/uL (0.11-0.59); %Basophils 0.7 % (0.0-1.0); %Eosinophils 0.8 % (0.0-10.0); %Lymphocytes 16.6 % (21.0-51.0); %Monocytes 13.2 % (0.0-10.0); %Neutrophils 68.8 % (42.0-75.0); Hemoglobin 12.9 g/dL (14.0-18.0); Mean Corpuscular HGB CONC 32.6 g/dL (32.0-36.0); Mean Corpuscular Hemoglobin 35.9 pg (27.0-31.0); Mean Platelet Volume 10.1 fL (7.4-10.4); Platelet Count 253 10x3/uL (130-400)
[2022-03-29 04:07] LABS: Anion Gap 18 mmol/L (10-20); BUN (Urea Nitrogen) 29 mg/dL (8.4-25.7); Calc. Creatinine Clearance 53 mL/min (70-130); Carbon Dioxide 20 mmol/L (23-31); Chloride 107 mmol/L (98-107); Potassium 3.6 mmol/L (3.5-5.1); Sodium 141 mmol/L (136-145)
[2022-03-29 04:08] LABS: Calcium 9.1 mg/dL (7.8-10.44); Estimated GFR 84; Glucose 93 mg/dL (83-110); Magnesium 1.7 mg/dL (1.6-2.6); Phosphorus 3.4 mg/dL (2.3-4.7)
[2022-03-29] MEDS ORDERED: Magnesium 2 GM/50 ML(in water) 2 GM in Premix Bag 1 BAG IVPB SCH (07:15)
[2022-03-29] MEDS ORDERED: Potassium Phosphate 15 MMOL, Magnesium Sulfate 2 GM in Sodium Chloride 0.9% 250 ML 250 ML IVPB SCH (08:00)
[2022-03-29] MEDS: Metoprolol Tartrate 25 MG TAB PO SCH ×2 (08:16→20:37)
[2022-03-29] MEDS: Polyethylene Glycol 3350 17 GM Packet PO SCH (08:21)
[2022-03-29] MEDS: Senokot S 8.6-50 MG TAB PO SCH ×2 (08:21→20:16)
[2022-03-29] MEDS: Famotidine/PF 20 mg/2ml Vial SLOW IVP SCH ×2 (08:28→20:36)
[2022-03-29] MEDS: Sodium Chloride 0.9% 1,000 ML IV SCH (08:30)
[2022-03-29] MEDS: Hydrochlorothiazide 25 MG TAB PO SCH (08:35)
[2022-03-29] MEDS ORDERED: EPINEPHrine 1 MG/ML AMP ONE (08:39)
[2022-03-29] MEDS ORDERED: Lidocaine 1% (PF) 30 ML VIAL ONE (08:39)
[2022-03-29] MEDS ORDERED: fentaNYL PF 100 MCG/2 ML SYRINGE ONE (08:49)
[2022-03-29] MEDS ORDERED: Lisinopril 20 MG TAB PO SCH (09:00)
[2022-03-29] MEDS ORDERED: CEFAZOLIN 2 GM in Sodium Chloride 0.9% 100 ML IVPB SCH (09:00)
[2022-03-29] MEDS ORDERED: Rocuronium Bromide 10 MG/ML (10ML VIAL) ONE (09:18)
[2022-03-29] MEDS ORDERED: Esmolol 100 MG/10 ML VIAL ONE (09:18)
[2022-03-29] MEDS ORDERED: Ondansetron PF 4 MG/2 ML Vial ONE (09:18)
[2022-03-29] MEDS ORDERED: NEOSTIGMINE 3 MG/3 ML SYR 3 MG/3 ML SYRINGE ONE (09:18)
[2022-03-29] MEDS ORDERED: Glycopyrrolate 0.2 MG/ML 5 ML SYRINGE ONE (09:18)
[2022-03-29] MEDS ORDERED: Phenylephrine 10 MG/ML VIAL ONE (09:18)
[2022-03-29] MEDS ORDERED: PROPOFOL 200 MG/20 ML VIAL ONE (09:18)
[2022-03-29] MEDS: FENTANYL 50 MCG/ML 1 ML VIAL SLOW IVP PRN (11:42)
[2022-03-29] MEDS: Acetaminophen 325 MG TAB PO SCH ×3 (14:55→23:44)
[2022-03-29] MEDS: CEFAZOLIN 2 GM in Sodium Chloride 0.9% 100 ML IVPB SCH ×2 (16:28→23:45)
[2022-03-30 04:01] LABS: #Eosinphils 0.1 thou/uL (0.0-0.7); #Lymphocytes 2.5 thou/uL (1.20-3.40); #Monocytes 2.6 thou/uL (0.11-0.59); %Basophils 0.2 % (0.0-1.0); %Eosinophils 0.4 % (0.0-10.0); %Lymphocytes 13.8 % (21.0-51.0); %Monocytes 14.3 % (0.0-10.0); %Neutrophils 71.3 % (42.0-75.0); Hemoglobin 10.1 g/dL (14.0-18.0); Mean Corpuscular HGB CONC 31.6 g/dL (32.0-36.0); Mean Corpuscular Hemoglobin 34.9 pg (27.0-31.0); Mean Platelet Volume 10.3 fL (7.4-10.4); Platelet Count 207 10x3/uL (130-400); Red Blood Cell (RBC) Count 2.91 mill/uL (4.70-6.10); White Blood Cell (WBC) Count 18.2 10x3/uL (4.8-10.8)
[2022-03-30 04:22] LABS: Anion Gap 12 mmol/L (10-20); BUN (Urea Nitrogen) 27 mg/dL (8.4-25.7); Calc. Creatinine Clearance 44 mL/min (70-130); Calcium 8.1 mg/dL (7.8-10.44); Carbon Dioxide 23 mmol/L (23-31); Chloride 108 mmol/L (98-107); Estimated GFR 70; Glucose 113 mg/dL (83-110); Phosphorus 4.4 mg/dL (2.3-4.7); Potassium 3.7 mmol/L (3.5-5.1); Sodium 139 mmol/L (136-145)
[2022-03-30] MEDS: Acetaminophen 325 MG TAB PO SCH ×4 (06:25→23:35)
[2022-03-30] MEDS: FENTANYL 50 MCG/ML 1 ML VIAL SLOW IVP PRN (07:22)
[2022-03-30] MEDS ORDERED: Potassium Chloride 20 MEQ TAB PO SCH (07:30)
[2022-03-30] MEDS: Hydrochlorothiazide 25 MG TAB PO SCH ×2 (07:47→08:32)
[2022-03-30] MEDS: Famotidine 20 MG TAB PO SCH (07:47)
[2022-03-30] MEDS: Folic Acid 1 MG TAB PO SCH (07:48)
[2022-03-30] MEDS: Senokot S 8.6-50 MG TAB PO SCH ×2 (07:48→20:43)
[2022-03-30] MEDS: CEFAZOLIN 2 GM in Sodium Chloride 0.9% 100 ML IVPB SCH ×3 (07:49→23:36)
[2022-03-30] MEDS: Lisinopril 20 MG TAB PO SCH ×2 (07:49→08:31)
[2022-03-30] MEDS: Polyethylene Glycol 3350 17 GM Packet PO SCH (07:50)
[2022-03-30] MEDS: Metoprolol Tartrate 25 MG TAB PO SCH ×3 (07:53→20:44)
[2022-03-30] MEDS: Citalopram 20 MG TAB PO SCH (07:53)
[2022-03-30] MEDS: Acetaminophen/Codeine 30-300mg Tablet PO PRN ×2 (08:32→22:43)
[2022-03-30] MEDS: Tamsulosin HCl 0.4 MG CAP PO SCH (08:32)
[2022-03-30] MEDS: DorzolamidE/Timolol 2%/0.5% Ophth Soln 10 ml Bottle EA EYE SCH ×2 (09:56→20:45)
[2022-03-30] MEDS ORDERED: Bisacodyl 10 MG SUPP PR SCH (11:30)
[2022-03-30] MEDS ORDERED: Albuterol Sulfate 2.5 mg/3 ml Neb NEB PRN (11:32)
[2022-03-30] MEDS: Atorvastatin Calcium 40 MG TAB PO SCH (20:44)
[2022-03-30] MEDS: Donepezil HCl 10 MG TAB PO SCH (20:45)
[2022-03-31] MEDS: FENTANYL 50 MCG/ML 1 ML VIAL SLOW IVP PRN ×2 (00:06→04:51)
[2022-03-31 04:05] LABS: #Basophils 0.1 thou/uL (0.0-0.2); #Eosinphils 0.2 thou/uL (0.0-0.7); #Lymphocytes 3.1 thou/uL (1.20-3.40); #Monocytes 2.1 thou/uL (0.11-0.59); %Basophils 0.6 % (0.0-1.0); %Eosinophils 1.6 % (0.0-10.0); %Lymphocytes 19.7 % (21.0-51.0); %Monocytes 13.4 % (0.0-10.0); %Neutrophils 64.7 % (42.0-75.0); Hemoglobin 9.6 g/dL (14.0-18.0); Mean Corpuscular HGB CONC 30.9 g/dL (32.0-36.0); Mean Corpuscular Hemoglobin 34.5 pg (27.0-31.0); Mean Platelet Volume 10.7 fL (7.4-10.4); Platelet Count 172 10x3/uL (130-400); RBC Distribution Width 14.1 % (11.5-14.5); Red Blood Cell (RBC) Count 2.79 mill/uL (4.70-6.10); White Blood Cell (WBC) Count 15.5 10x3/uL (4.8-10.8)
[2022-03-31] MEDS: Acetaminophen 325 MG TAB PO SCH ×3 (04:52→17:07)
[2022-03-31 05:22] LABS: Anion Gap 10 mmol/L (10-20); BUN (Urea Nitrogen) 37 mg/dL (8.4-25.7); Calc. Creatinine Clearance 43 mL/min (70-130); Calcium 8.2 mg/dL (7.8-10.44); Carbon Dioxide 23 mmol/L (23-31); Chloride 106 mmol/L (98-107); Estimated GFR 68; Glucose 101 mg/dL (83-110); Phosphorus 2.7 mg/dL (2.3-4.7); Potassium 4.2 mmol/L (3.5-5.1); Sodium 135 mmol/L (136-145)
[2022-03-31] MEDS ORDERED: PHOS-NAK 1 PKT PACK PO SCH (07:15)
[2022-03-31] MEDS ORDERED: Hydrochlorothiazide 25 MG TAB PO SCH (09:00)
[2022-03-31] MEDS: Metoprolol Tartrate 25 MG TAB PO SCH ×2 (09:46→20:05)
[2022-03-31] MEDS: Citalopram 20 MG TAB PO SCH (09:46)
[2022-03-31] MEDS: Senokot S 8.6-50 MG TAB PO SCH ×2 (09:46→20:06)
[2022-03-31] MEDS: Famotidine 20 MG TAB PO SCH (09:46)
[2022-03-31] MEDS: Folic Acid 1 MG TAB PO SCH (09:47)
[2022-03-31] MEDS: Lisinopril 20 MG TAB PO SCH (09:47)
[2022-03-31] MEDS: Polyethylene Glycol 3350 17 GM Packet PO SCH (09:47)
[2022-03-31] MEDS: Tamsulosin HCl 0.4 MG CAP PO SCH (09:47)
[2022-03-31] MEDS: Allopurinol 300 MG TAB PO SCH (09:59)
[2022-03-31] MEDS: CEFAZOLIN 2 GM in Sodium Chloride 0.9% 100 ML IVPB SCH (11:28)
[2022-03-31] MEDS: Fluticasone Propionate Nasal Spray 16 gm Bottle NASAL SCH (11:32)
[2022-03-31] MEDS: DorzolamidE/Timolol 2%/0.5% Ophth Soln 10 ml Bottle EA EYE SCH ×2 (11:33→20:07)
[2022-03-31] MEDS: Donepezil HCl 10 MG TAB PO SCH (20:06)
[2022-03-31] MEDS: Atorvastatin Calcium 40 MG TAB PO SCH (20:06)
[2022-03-31] MEDS: Melatonin 3 MG TAB PO SCH (20:06)
[2022-04-01] MEDS: Acetaminophen 325 MG TAB PO SCH ×4 (01:10→17:01)
[2022-04-01 06:38] LABS: Anion Gap 11 mmol/L (10-20); BUN (Urea Nitrogen) 32 mg/dL (8.4-25.7); Calc. Creatinine Clearance 51 mL/min (70-130); Calcium 8.3 mg/dL (7.8-10.44); Carbon Dioxide 25 mmol/L (23-31); Chloride 103 mmol/L (98-107); Estimated GFR 84; Glucose 102 mg/dL (83-110); Magnesium 1.8 mg/dL (1.6-2.6); Phosphorus 3.4 mg/dL (2.3-4.7); Sodium 135 mmol/L (136-145)
[2022-04-01 06:45] LABS: Band 6 % (5-11); Eosinophils 3 % (0-10); Hemoglobin 8.9 g/dL (14.0-18.0); Lymphocytes 31 % (21-51); MDiff Complete? YES; Mean Corpuscular HGB CONC 32.3 g/dL (32.0-36.0); Mean Corpuscular Hemoglobin 36.2 pg (27.0-31.0); Mean Platelet Volume 10.7 fL (7.4-10.4); Monocytes 7 % (0-10); Neutrophil 53 % (42-75); Platelet Count 162 10x3/uL (130-400); RBC Distribution Width 13.9 % (11.5-14.5); Red Blood Cell (RBC) Count 2.47 mill/uL (4.70-6.10); White Blood Cell (WBC) Count 13.6 10x3/uL (4.8-10.8)
[2022-04-01] MEDS ORDERED: Magnesium 2 GM/50 ML(in water) 2 GM in Premix Bag 1 BAG IVPB SCH (07:45)
[2022-04-01] MEDS ORDERED: PHOS-NAK 1 PKT PACK PO SCH (07:45)
[2022-04-01] MEDS: Allopurinol 300 MG TAB PO SCH (08:11)
[2022-04-01] MEDS: Famotidine 20 MG TAB PO SCH (08:11)
[2022-04-01] MEDS: Citalopram 20 MG TAB PO SCH (08:11)
[2022-04-01] MEDS: Polyethylene Glycol 3350 17 GM Packet PO SCH (08:12)
[2022-04-01] MEDS: Tamsulosin HCl 0.4 MG CAP PO SCH (08:12)
[2022-04-01] MEDS: Folic Acid 1 MG TAB PO SCH (08:12)
[2022-04-01] MEDS: Lisinopril 20 MG TAB PO SCH (08:12)
[2022-04-01] MEDS: Senokot S 8.6-50 MG TAB PO SCH ×2 (08:12→20:12)
[2022-04-01] MEDS: DorzolamidE/Timolol 2%/0.5% Ophth Soln 10 ml Bottle EA EYE SCH ×2 (08:13→20:11)
[2022-04-01] MEDS: Metoprolol Tartrate 25 MG TAB PO SCH ×2 (08:13→20:12)
[2022-04-01] MEDS: Fluticasone Propionate Nasal Spray 16 gm Bottle NASAL SCH (08:13)
[2022-04-01] MEDS: Melatonin 3 MG TAB PO SCH (20:11)
[2022-04-01] MEDS: Atorvastatin Calcium 40 MG TAB PO SCH (20:11)
[2022-04-01] MEDS: Donepezil HCl 10 MG TAB PO SCH (20:12)
[2022-04-02] MEDS: Acetaminophen 325 MG TAB PO SCH ×5 (00:48→23:58)
[2022-04-02 06:56] LABS: Hemoglobin 8.9 g/dL (14.0-18.0); Mean Corpuscular HGB CONC 32.2 g/dL (32.0-36.0); Mean Corpuscular Hemoglobin 35.7 pg (27.0-31.0); Mean Platelet Volume 10.9 fL (7.4-10.4); Platelet Count 171 10x3/uL (130-400); Red Blood Cell (RBC) Count 2.51 mill/uL (4.70-6.10); White Blood Cell (WBC) Count 12.5 10x3/uL (4.8-10.8)
[2022-04-02 07:09] LABS: Anion Gap 10 mmol/L (10-20); BUN (Urea Nitrogen) 30 mg/dL (8.4-25.7); Calc. Creatinine Clearance 52 mL/min (70-130); Calcium 8.5 mg/dL (7.8-10.44); Carbon Dioxide 27 mmol/L (23-31); Chloride 103 mmol/L (98-107); Estimated GFR 85; Glucose 107 mg/dL (83-110); Phosphorus 3.5 mg/dL (2.3-4.7); Potassium 3.6 mmol/L (3.5-5.1); Sodium 136 mmol/L (136-145)
[2022-04-02 07:21] LABS: Band 5 % (5-11); Eosinophils 2 % (0-10); Lymphocytes 18 % (21-51); MDiff Complete? YES; Macrocytosis SLIGHT = 6-15 cells (100X) (0-5/hpf); Monocytes 13 % (0-10); Neutrophil 62 % (42-75); Platelet Morphology Comment Appears Adequate; Schistocytes SLIGHT = 2-5 cells (100X) (0-1/hpf); Target Cells SLIGHT = 2-5 cells (100X) (0-1/hpf); Tear Drops SLIGHT = 2-5 cells (100X) (0-1/hpf)
[2022-04-02] MEDS ORDERED: PHOS-NAK 1 PKT PACK PO SCH (08:00)
[2022-04-02] MEDS ORDERED: Potassium Chloride 20 MEQ TAB PO SCH (08:00)
[2022-04-02] MEDS: Senokot S 8.6-50 MG TAB PO SCH ×2 (08:55→19:55)
[2022-04-02] MEDS: Folic Acid 1 MG TAB PO SCH (08:58)
[2022-04-02] MEDS: Citalopram 20 MG TAB PO SCH (08:58)
[2022-04-02] MEDS: Lisinopril 20 MG TAB PO SCH (08:58)
[2022-04-02] MEDS: Tamsulosin HCl 0.4 MG CAP PO SCH (08:59)
[2022-04-02] MEDS: Polyethylene Glycol 3350 17 GM Packet PO SCH (08:59)
[2022-04-02] MEDS: Famotidine 20 MG TAB PO SCH (09:00)
[2022-04-02] MEDS: Allopurinol 300 MG TAB PO SCH (09:00)
[2022-04-02] MEDS: Fluticasone Propionate Nasal Spray 16 gm Bottle NASAL SCH (09:00)
[2022-04-02] MEDS: DorzolamidE/Timolol 2%/0.5% Ophth Soln 10 ml Bottle EA EYE SCH ×2 (09:00→20:01)
[2022-04-02] MEDS: Metoprolol Tartrate 25 MG TAB PO SCH ×2 (09:01→19:54)
[2022-04-02 11:55] LABS: Bacteria/HPF None Seen HPF (None Seen); Bilirubin Negative (Negative); Blood, Urine Negative (Negative); Clarity Clear (Clear); Glucose, Urine (Dipstick) Normal (Negative); Ketone, Urine Negative (Negative); Leukocyte Negative Leu/uL (Negative); Nitrite Negative (Negative); Protein, Urine (Dipstick) 10 mg/dL (Neg-Trace); RBC/HPF 0-3 HPF (0-3); Specific Gravity, Urine 1.011 (1.002-1.036); Squamous Epithelial None Seen HPF (0-3); Urobilinogen Normal mg/dL (Less than 2); WBC/HPF 0-3 HPF (0-3)
[2022-04-02] MEDS: Melatonin 3 MG TAB PO SCH (19:55)
[2022-04-02] MEDS: Donepezil HCl 10 MG TAB PO SCH (19:55)
[2022-04-02] MEDS: Acetaminophen/Codeine 30-300mg Tablet PO PRN (19:55)
[2022-04-02] MEDS: Atorvastatin Calcium 40 MG TAB PO SCH (19:55)
[2022-04-03] MEDS ORDERED: Haloperidol Lactate 5 MG/ML VIAL ONE (00:46)
[2022-04-03] MEDS: Acetaminophen 325 MG TAB PO SCH ×3 (06:08→18:16)
[2022-04-03] MEDS: Citalopram 20 MG TAB PO SCH (09:08)
[2022-04-03] MEDS: Allopurinol 300 MG TAB PO SCH (09:09)
[2022-04-03] MEDS: Lisinopril 20 MG TAB PO SCH (09:10)
[2022-04-03] MEDS: Senokot S 8.6-50 MG TAB PO SCH ×2 (09:10→20:26)
[2022-04-03] MEDS: Tamsulosin HCl 0.4 MG CAP PO SCH (09:11)
[2022-04-03] MEDS: Metoprolol Tartrate 25 MG TAB PO SCH ×2 (09:11→20:26)
[2022-04-03] MEDS: Famotidine 20 MG TAB PO SCH (09:12)
[2022-04-03] MEDS: Folic Acid 1 MG TAB PO SCH (09:12)
[2022-04-03] MEDS: DorzolamidE/Timolol 2%/0.5% Ophth Soln 10 ml Bottle EA EYE SCH ×2 (09:12→23:12)
[2022-04-03] MEDS: Polyethylene Glycol 3350 17 GM Packet PO SCH (09:12)
[2022-04-03] MEDS: Fluticasone Propionate Nasal Spray 16 gm Bottle NASAL SCH (09:13)
[2022-04-03] MEDS: Dutasteride 0.5 MG CAP PO SCH (10:06)
[2022-04-03] MEDS: Melatonin 3 MG TAB PO SCH (20:26)
[2022-04-03] MEDS: Atorvastatin Calcium 40 MG TAB PO SCH (20:27)
[2022-04-03] MEDS: Donepezil HCl 10 MG TAB PO SCH (20:27)
[2022-04-04] MEDS: Acetaminophen 325 MG TAB PO SCH (00:36)
[2022-04-04] MEDS: Famotidine 20 MG TAB PO SCH (08:55)
[2022-04-04] MEDS: Polyethylene Glycol 3350 17 GM Packet PO SCH ×2 (08:55→09:10)
[2022-04-04] MEDS: Citalopram 20 MG TAB PO SCH (08:55)
[2022-04-04] MEDS: Dutasteride 0.5 MG CAP PO SCH (08:55)
[2022-04-04] MEDS: Folic Acid 1 MG TAB PO SCH (08:56)
[2022-04-04] MEDS: Allopurinol 300 MG TAB PO SCH (08:56)
[2022-04-04] MEDS: Metoprolol Tartrate 25 MG TAB PO SCH (08:56)
[2022-04-04] MEDS: Lisinopril 20 MG TAB PO SCH (08:56)
[2022-04-04] MEDS: Fluticasone Propionate Nasal Spray 16 gm Bottle NASAL SCH (08:57)
[2022-04-04] MEDS: Tamsulosin HCl 0.4 MG CAP PO SCH (08:57)
[2022-04-04] MEDS: Senokot S 8.6-50 MG TAB PO SCH ×2 (08:57→09:11)
[2022-04-04] MEDS: DorzolamidE/Timolol 2%/0.5% Ophth Soln 10 ml Bottle EA EYE SCH (08:58)
[2022-04-04 13:05] VITALS: BP 123/63; TEMP 97.1
== END 2022-04-04 15:00 | DRG 23 ==
LOC: ERS 15:45 → ERHOLD 18:02 → CCU 21:27 → SJJU 03-31 10:51
PROVIDERS: ADMIT Surgery; ATTEND Surgery
PROC: 6A550Z2 Pheresis of Platelets, Single (ICD-10-PCS; principal; 2022-03-28)
PROC: 00C40ZZ Extirpation of Matter from Intracranial Subdural Space, Open Approach (ICD-10-PCS; 2022-03-29)
DX: S06.6X0A Traumatic subarachnoid hemorrhage without loss of consciousness, initial encounter (principal); S06.A0XA Traumatic brain compression without herniation, initial encounter; E87.1 Hypo-osmolality and hyponatremia; F05 Delirium due to known physiological condition; R40.2412 Glasgow coma scale score 13-15, at arrival to emergency department; W18.30XA Fall on same level, unspecified, initial encounter; S06.5X0A Traumatic subdural hemorrhage without loss of consciousness, initial encounter; Z20.822 Contact with and (suspected) exposure to COVID-19; F03.90 Unspecified dementia, unspecified severity, without behavioral disturbance, psychotic disturbance, mood disturbance, and anxiety; I10 Essential (primary) hypertension; R33.9 Retention of urine, unspecified; D72.829 Elevated white blood cell count, unspecified; I25.10 Atherosclerotic heart disease of native coronary artery without angina pectoris; E78.00 Pure hypercholesterolemia, unspecified; Z86.73 Personal history of transient ischemic attack (TIA), and cerebral infarction without residual deficits; Z79.899 Other long term (current) drug therapy; Z95.5 Presence of coronary angioplasty implant and graft; Z79.02 Long term (current) use of antithrombotics/antiplatelets; Z90.81 Acquired absence of spleen; Z88.5 Allergy status to narcotic agent; Y92.009 Unspecified place in unspecified non-institutional (private) residence as the place of occurrence of the external cause; Z87.891 Personal history of nicotine dependence
CPT/HCPCS: 36415; 36416; 36430; 70450; 72125; 80048; 80053; 81001; 81003; 81015; 82553; 83735; 84100; 84443; 84484; 85025; 85610; 85730; 86850; 86900; 86901; 87086; 87811; 93005; 93010; 93970; 96374; C1713; G0390; J0171; J0360; J1630; J2001; J2370; J2405; J2704; J3010; J3475; J3490; J7050; P9035; S0028

== ENCOUNTER 2022-05-30 21:21 | Inpatient (IN) | payer OTHER ==
[2022-05-30] MEDS ORDERED: Ipratropium/Albuterol 3 ML NEB NEB PRN (22:48)
[2022-05-30] MEDS ORDERED: Ondansetron PF 4 MG/2 ML Vial IVP PRN (22:48)
[2022-05-30] MEDS ORDERED: hydrALAZINE 20 MG/ML VIAL SLOW IVP PRN (22:48)
[2022-05-30] MEDS ORDERED: TETANUS, DIPHTHERIA TOX,ADULT (TDVAX) 0.5 ML VIAL IM ONE (22:48)
[2022-05-30 23:09] LABS: Hemoglobin 8.9 g/dL (14.0-18.0); Mean Corpuscular HGB CONC 32.1 g/dL (32.0-36.0); Mean Corpuscular Hemoglobin 35.8 pg (27.0-31.0); Mean Platelet Volume 9.6 fL (7.4-10.4); Platelet Count 212 10x3/uL (130-400); RBC Distribution Width 14.9 % (11.5-14.5); Red Blood Cell (RBC) Count 2.47 mill/uL (4.70-6.10); White Blood Cell (WBC) Count 9.7 10x3/uL (4.8-10.8)
[2022-05-30 23:19] LABS: INR-International Normal Ratio 1.1; Prothrombin Time 14.8 sec (12.0-14.7)
[2022-05-30 23:25] LABS: Anion Gap 10 mmol/L (10-20); BUN (Urea Nitrogen) 33 mg/dL (8.4-25.7); Calc. Creatinine Clearance 0 mL/min (70-130); Calcium 8.3 mg/dL (7.8-10.44); Carbon Dioxide 26 mmol/L (23-31); Chloride 108 mmol/L (98-107); Estimated GFR 57; Glucose 86 mg/dL (83-110); Potassium 3.9 mmol/L (3.5-5.1); Sodium 140 mmol/L (136-145)
[2022-05-30 23:39] LABS: Anisocytosis SLIGHT = 6-15 cells (100X) (0-5/hpf); Eosinophils 6 % (0-10); Lymphocytes 30 % (21-51); MDiff Complete? YES; Monocytes 11 % (0-10); Neutrophil 53 % (42-75); Platelet Morphology Comment Appears Adequate; Polychromasia SLIGHT = 2-3 cells (100X) (0-2/hpf); Schistocytes SLIGHT = 2-5 cells (100X) (0-1/hpf)
[2022-05-31] MEDS ORDERED: LORazepam 2 MG/ML SYR.(CARPUJECT) ONE (00:15)
[2022-05-31] MEDS ORDERED: QUEtiapine 25 MG TAB PO SCH (00:30)
[2022-05-31] MEDS ORDERED: Boostrix 0.5 ML (Tdap) VIAL (>/=7 yrs of age) ONE (01:41)
[2022-05-31] MEDS: Acetaminophen 500 MG TAB PO SCH ×5 (01:45→23:39)
[2022-05-31 07:08] LABS: #Basophils 0.1 thou/uL (0.0-0.2); #Eosinphils 0.3 thou/uL (0.0-0.7); #Monocytes 1.5 thou/uL (0.11-0.59); #Neutrophils 5.8 thou/uL (1.40-6.50); %Basophils 1.1 % (0.0-1.0); %Eosinophils 3.3 % (0.0-10.0); %Lymphocytes 27.8 % (21.0-51.0); %Monocytes 13.7 % (0.0-10.0); %Neutrophils 54.2 % (42.0-75.0); Hemoglobin 9.3 g/dL (14.0-18.0); Mean Corpuscular Hemoglobin 35.8 pg (27.0-31.0); Mean Platelet Volume 10.3 fL (7.4-10.4); Platelet Count 219 10x3/uL (130-400); RBC Distribution Width 15.1 % (11.5-14.5); Red Blood Cell (RBC) Count 2.59 mill/uL (4.70-6.10); White Blood Cell (WBC) Count 10.7 10x3/uL (4.8-10.8)
[2022-05-31 07:23] LABS: Anion Gap 12 mmol/L (10-20); BUN (Urea Nitrogen) 29 mg/dL (8.4-25.7); Calc. Creatinine Clearance 0 mL/min (70-130); Calcium 8.5 mg/dL (7.8-10.44); Carbon Dioxide 25 mmol/L (23-31); Chloride 108 mmol/L (98-107); Estimated GFR 70; Glucose 74 mg/dL (83-110); Potassium 3.8 mmol/L (3.5-5.1); Sodium 141 mmol/L (136-145)
[2022-05-31 07:25] LABS: INR-International Normal Ratio 1.1; Prothrombin Time 14.6 sec (12.0-14.7)
[2022-05-31 07:26] LABS: PTT 33.3 sec (22.9-36.1)
[2022-05-31] MEDS: DorzolamidE/Timolol 2%/0.5% Ophth Soln 10 ml Bottle EA EYE SCH ×2 (09:55→19:33)
[2022-05-31] MEDS: Donepezil HCl 10 MG TAB PO SCH (09:58)
[2022-05-31] MEDS: Metoprolol Tartrate 25 MG TAB PO SCH ×3 (09:58→20:45)
[2022-05-31] MEDS: Folic Acid 1 MG TAB PO SCH (09:58)
[2022-05-31] MEDS: Ferrous Sulfate 325 MG TAB PO SCH (09:58)
[2022-05-31] MEDS: Allopurinol 300 MG TAB PO SCH (09:58)
[2022-05-31] MEDS: Famotidine/PF 20 mg/2ml Vial SLOW IVP SCH (10:01)
[2022-05-31] MEDS: hydrALAZINE 20 MG/ML VIAL SLOW IVP PRN ×3 (13:27→22:46)
[2022-05-31] MEDS ORDERED: Lisinopril 10 MG TAB PO SCH (15:15)
[2022-05-31] MEDS: Atorvastatin Calcium 40 MG TAB PO SCH ×2 (19:32→20:44)
[2022-05-31] MEDS: QUEtiapine 25 MG TAB PO SCH ×2 (19:33→20:45)
[2022-05-31] MEDS ORDERED: Lorazepam 2 MG/ML VIAL SLOW IVP SCH (20:15)
[2022-05-31] MEDS: Latanoprost 0.005% Ophth Soln 2.5 ml Bottle EA EYE SCH (20:44)
[2022-06-01] MEDS: hydrALAZINE 20 MG/ML VIAL SLOW IVP PRN ×3 (03:38→21:19)
[2022-06-01] MEDS: Acetaminophen 500 MG TAB PO SCH ×4 (04:16→23:29)
[2022-06-01] MEDS ORDERED: LORazepam 2 MG/ML SYR.(CARPUJECT) IVP ONE (08:26)
[2022-06-01] MEDS ORDERED: Lorazepam 2 MG/ML VIAL SLOW IVP SCH (08:30)
[2022-06-01] MEDS: DorzolamidE/Timolol 2%/0.5% Ophth Soln 10 ml Bottle EA EYE SCH ×2 (08:45→21:19)
[2022-06-01] MEDS: Metoprolol Tartrate 25 MG TAB PO SCH ×2 (08:45→21:24)
[2022-06-01] MEDS: Lisinopril 10 MG TAB PO SCH (08:45)
[2022-06-01] MEDS: Donepezil HCl 10 MG TAB PO SCH (08:45)
[2022-06-01] MEDS: Famotidine/PF 20 mg/2ml Vial SLOW IVP SCH (08:45)
[2022-06-01] MEDS: Folic Acid 1 MG TAB PO SCH (08:46)
[2022-06-01] MEDS: Ferrous Sulfate 325 MG TAB PO SCH (08:46)
[2022-06-01] MEDS: Allopurinol 300 MG TAB PO SCH (08:46)
[2022-06-01 13:11] VITALS: BMI 21.8
[2022-06-01] MEDS: Latanoprost 0.005% Ophth Soln 2.5 ml Bottle EA EYE SCH (21:23)
[2022-06-01] MEDS: QUEtiapine 25 MG TAB PO SCH (21:24)
[2022-06-01] MEDS: Atorvastatin Calcium 40 MG TAB PO SCH (21:25)
[2022-06-02] MEDS: hydrALAZINE 20 MG/ML VIAL SLOW IVP PRN ×4 (00:43→21:26)
[2022-06-02] MEDS ORDERED: Lorazepam 2 MG/ML VIAL SLOW IVP SCH ×2 (03:45→17:53)
[2022-06-02] MEDS: Acetaminophen 500 MG TAB PO SCH ×4 (05:36→23:13)
[2022-06-02] MEDS: DorzolamidE/Timolol 2%/0.5% Ophth Soln 10 ml Bottle EA EYE SCH ×2 (08:38→21:39)
[2022-06-02] MEDS: Lisinopril 10 MG TAB PO SCH (08:47)
[2022-06-02] MEDS: Donepezil HCl 10 MG TAB PO SCH (08:47)
[2022-06-02] MEDS: Folic Acid 1 MG TAB PO SCH (08:48)
[2022-06-02] MEDS: Ferrous Sulfate 325 MG TAB PO SCH (08:48)
[2022-06-02] MEDS: Metoprolol Tartrate 25 MG TAB PO SCH ×2 (08:48→21:48)
[2022-06-02] MEDS: Allopurinol 300 MG TAB PO SCH (08:48)
[2022-06-02] MEDS: Famotidine/PF 20 mg/2ml Vial SLOW IVP SCH (08:59)
[2022-06-02] MEDS ORDERED: Haloperidol Lactate 5 MG/ML VIAL IM SCH (17:53)
[2022-06-02] MEDS: Latanoprost 0.005% Ophth Soln 2.5 ml Bottle EA EYE SCH (21:39)
[2022-06-02] MEDS: QUEtiapine 25 MG TAB PO SCH (21:44)
[2022-06-02] MEDS: Atorvastatin Calcium 40 MG TAB PO SCH (21:50)
[2022-06-03 08:59] VITALS: TEMP 98.6
[2022-06-03] MEDS: Ferrous Sulfate 325 MG TAB PO SCH (09:17)
[2022-06-03] MEDS: Allopurinol 300 MG TAB PO SCH (09:17)
[2022-06-03] MEDS: Donepezil HCl 10 MG TAB PO SCH (09:17)
[2022-06-03] MEDS: DorzolamidE/Timolol 2%/0.5% Ophth Soln 10 ml Bottle EA EYE SCH (09:18)
[2022-06-03] MEDS: Lisinopril 10 MG TAB PO SCH (09:18)
[2022-06-03] MEDS: Folic Acid 1 MG TAB PO SCH (09:18)
[2022-06-03] MEDS: Metoprolol Tartrate 25 MG TAB PO SCH (09:19)
[2022-06-03] MEDS: Famotidine/PF 20 mg/2ml Vial SLOW IVP SCH (09:20)
[2022-06-03 12:34] VITALS: BP 162/71
[2022-06-03] MEDS: hydrALAZINE 20 MG/ML VIAL SLOW IVP PRN (12:47)
[2022-06-03] MEDS: Acetaminophen 500 MG TAB PO SCH (13:05)
[2022-06-04] MEDS ORDERED: Methotrexate Sodium 2.5 MG TAB PO SCH (09:00)
== END 2022-06-03 13:20 | disposition home health service (06) | DRG 86 ==
LOC: ERS 21:21 → ERHOLD 22:55 → MSONC 05-31 03:02
PROVIDERS: ADMIT Surgery; ATTEND Surgery
DX: S06.5X0A Traumatic subdural hemorrhage without loss of consciousness, initial encounter (principal); F02.811 Dementia in other diseases classified elsewhere, unspecified severity, with agitation; F05 Delirium due to known physiological condition; R40.2412 Glasgow coma scale score 13-15, at arrival to emergency department; G30.9 Alzheimer's disease, unspecified; I25.10 Atherosclerotic heart disease of native coronary artery without angina pectoris; E78.5 Hyperlipidemia, unspecified; I10 Essential (primary) hypertension; L30.9 Dermatitis, unspecified; W18.39XA Other fall on same level, initial encounter; Y92.129 Unspecified place in nursing home as the place of occurrence of the external cause; Z95.5 Presence of coronary angioplasty implant and graft; Z79.899 Other long term (current) drug therapy; Z88.5 Allergy status to narcotic agent; Z88.8 Allergy status to other drugs, medicaments and biological substances; Z78.1 Physical restraint status
CPT/HCPCS: 36415; 70450; 72125; 80048; 85025; 85610; 85730; 90714; 90715; 93005; 96374; J0360; J1630; J2060; S0028; U0003; U0005

== ENCOUNTER 2022-06-16 14:50 | Inpatient (IN) | payer MEDICARE, OTHER ==
[2022-06-16 15:57] LABS: Bilirubin Negative (Negative); Blood, Urine Negative (Negative); Clarity Clear (Clear); Glucose, Urine (Dipstick) Normal (Negative); Ketone, Urine Negative (Negative); Leukocyte Negative Leu/uL (Negative); Nitrite Negative (Negative); Protein, Urine (Dipstick) 10 mg/dL (Neg-Trace); Specific Gravity, Urine 1.009 (1.002-1.036); Urobilinogen Normal mg/dL (Less than 2); pH, Urine 5.5 (5.0-9.0)
[2022-06-16 15:58] LABS: #Basophils 0.1 thou/uL (0.0-0.2); #Eosinphils 0.3 thou/uL (0.0-0.7); #Lymphocytes 2.6 thou/uL (1.20-3.40); #Monocytes 1.7 thou/uL (0.11-0.59); %Basophils 0.8 % (0.0-1.0); %Lymphocytes 20.7 % (21.0-51.0); %Monocytes 13.5 % (0.0-10.0); Hemoglobin 9.7 g/dL (14.0-18.0); Mean Platelet Volume 9.9 fL (7.4-10.4); Platelet Count 249 10x3/uL (130-400); RBC Distribution Width 15.3 % (11.5-14.5); Red Blood Cell (RBC) Count 2.77 mill/uL (4.70-6.10); White Blood Cell (WBC) Count 12.7 10x3/uL (4.8-10.8)
[2022-06-16 16:18] LABS: ALT (SGPT) 15 U/L (8-55); AST (SGOT) 19 U/L (5-34); Albumin 3.5 g/dL (3.4-4.8); Alkaline Phosphatase 137 U/L (40-110); Anion Gap 12 mmol/L (10-20); BUN (Urea Nitrogen) 22 mg/dL (8.4-25.7); Bilirubin, Total 0.7 mg/dL (0.2-1.2); CK (CPK) 72 U/L (30-200); Calc. Creatinine Clearance 0 mL/min (70-130); Calcium 8.8 mg/dL (7.8-10.44); Carbon Dioxide 26 mmol/L (23-31); Chloride 106 mmol/L (98-107); Estimated GFR 73; Glucose 98 mg/dL (83-110); Potassium 4.1 mmol/L (3.5-5.1); Protein, Total 6.5 g/dL (5.8-8.1); Sodium 140 mmol/L (136-145)
[2022-06-16 16:40] LABS: CKMB 1.7 ng/mL (0-6.6)
[2022-06-16] MEDS ORDERED: Ondansetron PF 4 MG/2 ML Vial IVP PRN (17:02)
[2022-06-16] MEDS ORDERED: Ondansetron ODT 4 MG TAB PO PRN (17:02)
[2022-06-16] MEDS: Sodium Chloride 0.9% 1,000 ML IV SCH ×2 (17:15→22:27)
[2022-06-16 17:33] LABS: Magnesium 1.6 mg/dL (1.6-2.6)
[2022-06-16] MEDS ORDERED: LORazepam 2 MG/ML SYR.(CARPUJECT) ONE (19:12)
[2022-06-16 19:43] LABS: Troponin I 0.081 ng/mL (< 0.028)
[2022-06-16 22:17] LABS: Troponin I 0.085 ng/mL (< 0.028)
[2022-06-16 23:35] VITALS: BMI 21.4
[2022-06-17] MEDS ORDERED: cloNIDine 0.1 MG TAB PO SCH (03:15)
[2022-06-17] MEDS ORDERED: hydrALAZINE 20 MG/ML VIAL SLOW IVP PRN (03:28)
[2022-06-17] MEDS ORDERED: hydrALAZINE 20 MG/ML VIAL SLOW IVP SCH (03:30)
[2022-06-17 05:03] LABS: #Basophils 0.1 thou/uL (0.0-0.2); #Eosinphils 0.3 thou/uL (0.0-0.7); #Monocytes 1.7 thou/uL (0.11-0.59); #Neutrophils 7.6 thou/uL (1.40-6.50); %Basophils 1.1 % (0.0-1.0); %Eosinophils 2.4 % (0.0-10.0); %Lymphocytes 23.7 % (21.0-51.0); %Monocytes 13.3 % (0.0-10.0); %Neutrophils 59.5 % (42.0-75.0); Hemoglobin 10.2 g/dL (14.0-18.0); Mean Corpuscular HGB CONC 31.3 g/dL (32.0-36.0); Mean Platelet Volume 10.8 fL (7.4-10.4); Platelet Count 232 10x3/uL (130-400); RBC Distribution Width 15.2 % (11.5-14.5); Red Blood Cell (RBC) Count 2.99 mill/uL (4.70-6.10); White Blood Cell (WBC) Count 12.8 10x3/uL (4.8-10.8)
[2022-06-17 05:27] LABS: Anion Gap 8 mmol/L (10-20); BUN (Urea Nitrogen) 21 mg/dL (8.4-25.7); Calc. Creatinine Clearance 56 mL/min (70-130); Calcium 8.6 mg/dL (7.8-10.44); Carbon Dioxide 26 mmol/L (23-31); Chloride 108 mmol/L (98-107); Estimated GFR 85; Glucose 77 mg/dL (83-110); Potassium 4.2 mmol/L (3.5-5.1); Sodium 138 mmol/L (136-145)
[2022-06-17] MEDS: Sodium Chloride 0.9% 1,000 ML IV SCH (12:35)
[2022-06-18] MEDS ORDERED: Sterile Water 10 ML VIAL FS PRN (02:00)
[2022-06-18] MEDS ORDERED: hydrALAZINE 20 MG/ML VIAL SLOW IVP SCH (02:00)
[2022-06-18] MEDS ORDERED: OLANZapine 10 MG VIAL IM SCH ×2 (02:00→07:15)
[2022-06-18] MEDS: Sodium Chloride 0.9% 1,000 ML IV SCH ×4 (02:23→21:39)
[2022-06-18 05:39] LABS: #Basophils 0.1 thou/uL (0.0-0.2); #Eosinphils 0.2 thou/uL (0.0-0.7); #Monocytes 2.1 thou/uL (0.11-0.59); #Neutrophils 9.4 thou/uL (1.40-6.50); %Basophils 0.5 % (0.0-1.0); %Eosinophils 1.5 % (0.0-10.0); %Lymphocytes 20.5 % (21.0-51.0); %Monocytes 14.2 % (0.0-10.0); %Neutrophils 63.4 % (42.0-75.0); Anion Gap 14 mmol/L (10-20); BUN (Urea Nitrogen) 14 mg/dL (8.4-25.7); Calc. Creatinine Clearance 61 mL/min (70-130); Calcium 8.7 mg/dL (7.8-10.44); Carbon Dioxide 20 mmol/L (23-31); Chloride 106 mmol/L (98-107); Estimated GFR 87; Glucose 79 mg/dL (83-110); Hemoglobin 10.5 g/dL (14.0-18.0); Mean Corpuscular HGB CONC 32.2 g/dL (32.0-36.0); Mean Corpuscular Hemoglobin 35.1 pg (27.0-31.0); Mean Platelet Volume 10.4 fL (7.4-10.4); Platelet Count 287 10x3/uL (130-400); Potassium 3.8 mmol/L (3.5-5.1); RBC Distribution Width 15.1 % (11.5-14.5); Sodium 136 mmol/L (136-145); White Blood Cell (WBC) Count 14.8 10x3/uL (4.8-10.8)
[2022-06-18 05:45] LABS: Troponin I 0.193 ng/mL (< 0.028)
[2022-06-18] MEDS ORDERED: Artificial Tear Sol 15 ML BOT EA EYE PRN (10:00)
[2022-06-18 11:24] LABS: Magnesium 1.3 mg/dL (1.6-2.6); Phosphorus 2.5 mg/dL (2.3-4.7)
[2022-06-18] MEDS ORDERED: Methotrexate Sodium 2.5 MG TAB PO SCH (12:00)
[2022-06-18] MEDS ORDERED: Magnesium 2 GM/50 ML(in water) 2 GM in Premix Bag 1 BAG IVPB SCH (12:10)
[2022-06-18] MEDS: DorzolamidE/Timolol 2%/0.5% Ophth Soln 10 ml Bottle EA EYE SCH (17:21)
[2022-06-18] MEDS ORDERED: [UNRECOGNIZED DRUG - OTHER] EA EYE SCH (21:00)
[2022-06-18] MEDS ORDERED: CARBOXYMETHYLCELLULOSE SODIUM EA EYE SCH (21:00)
[2022-06-18] MEDS ORDERED: QUEtiapine 25 MG TAB PO SCH (21:00)
[2022-06-18] MEDS ORDERED: MINERAL OIL EA EYE SCH (21:00)
[2022-06-18] MEDS ORDERED: Non-Formulary Item 1 EACH (Latanoprost/Pf [Latanoprost 0.005% Eye Drop] 7.5 ML Drops) OP SCH (21:00)
[2022-06-18] MEDS: QUEtiapine 25 MG TAB PO SCH (21:35)
[2022-06-18] MEDS: Metoprolol Tartrate 25 MG TAB PO SCH (21:35)
[2022-06-18] MEDS: Atorvastatin Calcium 40 MG TAB PO SCH (21:35)
[2022-06-18] MEDS: Lisinopril 10 MG TAB PO SCH (21:35)
[2022-06-18] MEDS: Latanoprost 0.005% Ophth Soln 2.5 ml Bottle EA EYE SCH (22:35)
[2022-06-18] MEDS: Polyvinyl Alcohol 1.4%/Povidone 0.6% Opth Drops EA EYE SCH (22:36)
[2022-06-19 05:09] LABS: Anion Gap 7 mmol/L (10-20); BUN (Urea Nitrogen) 16 mg/dL (8.4-25.7); Calc. Creatinine Clearance 56 mL/min (70-130); Calcium 8.7 mg/dL (7.8-10.44); Carbon Dioxide 22 mmol/L (23-31); Chloride 111 mmol/L (98-107); Estimated GFR 85; Glucose 80 mg/dL (83-110); Magnesium 1.7 mg/dL (1.6-2.6); Potassium 4.1 mmol/L (3.5-5.1); Sodium 136 mmol/L (136-145)
[2022-06-19 05:38] LABS: Band 10 % (5-11); Hemoglobin 10.1 g/dL (14.0-18.0); Hypochromia SLIGHT = 6-15 cells (100X) (0-5/hpf); Lymphocytes 10 % (21-51); MDiff Complete? YES; Macrocytosis SLIGHT = 6-15 cells (100X) (0-5/hpf); Mean Corpuscular HGB CONC 33.2 g/dL (32.0-36.0); Mean Corpuscular Hemoglobin 36.1 pg (27.0-31.0); Mean Platelet Volume 10.6 fL (7.4-10.4); Monocytes 19 % (0-10); Neutrophil 61 % (42-75); Platelet Count 244 10x3/uL (130-400); Platelet Morphology Comment Appears Adequate; RBC Distribution Width 15.1 % (11.5-14.5); White Blood Cell (WBC) Count 13.7 10x3/uL (4.8-10.8)
[2022-06-19] MEDS ORDERED: Clopidogrel Bisulfate 75 MG TAB PO SCH (09:00)
[2022-06-19] MEDS: Ferrous Sulfate 325 MG TAB PO SCH (09:58)
[2022-06-19] MEDS: Metoprolol Tartrate 25 MG TAB PO SCH ×2 (09:58→21:09)
[2022-06-19] MEDS: Allopurinol 300 MG TAB PO SCH (09:58)
[2022-06-19] MEDS: QUEtiapine 25 MG TAB PO SCH ×2 (09:58→21:09)
[2022-06-19] MEDS: Donepezil HCl 10 MG TAB PO SCH (09:58)
[2022-06-19] MEDS: Folic Acid 1 MG TAB PO SCH (09:58)
[2022-06-19] MEDS: Lisinopril 10 MG TAB PO SCH ×2 (09:58→21:09)
[2022-06-19] MEDS: DorzolamidE/Timolol 2%/0.5% Ophth Soln 10 ml Bottle EA EYE SCH ×2 (09:59→17:21)
[2022-06-19] MEDS: Acetaminophen 325 MG TAB PO PRN ×2 (15:32→21:14)
[2022-06-19] MEDS: Atorvastatin Calcium 40 MG TAB PO SCH (21:09)
[2022-06-19] MEDS: Polyvinyl Alcohol 1.4%/Povidone 0.6% Opth Drops EA EYE SCH (21:10)
[2022-06-19] MEDS: Latanoprost 0.005% Ophth Soln 2.5 ml Bottle EA EYE SCH (21:10)
[2022-06-20 05:36] LABS: Anion Gap 12 mmol/L (10-20); BUN (Urea Nitrogen) 24 mg/dL (8.4-25.7); Calc. Creatinine Clearance 49 mL/min (70-130); Calcium 8.2 mg/dL (7.8-10.44); Carbon Dioxide 22 mmol/L (23-31); Chloride 104 mmol/L (98-107); Estimated GFR 78; Glucose 87 mg/dL (83-110); Potassium 3.7 mmol/L (3.5-5.1); Sodium 134 mmol/L (136-145)
[2022-06-20 05:41] LABS: Anisocytosis SLIGHT = 6-15 cells (100X) (0-5/hpf); Band 2 % (5-11); Burr Cells SLIGHT = 2-5 cells (100X) (0-1/hpf); Eosinophils 2 % (0-10); Lymphocytes 15 % (21-51); MDiff Complete? YES; Macrocytosis MODERATE=16-30 cells (100X) (0-5/hpf); Mean Corpuscular HGB CONC 31.9 g/dL (32.0-36.0); Mean Corpuscular Hemoglobin 34.7 pg (27.0-31.0); Mean Platelet Volume 10.3 fL (7.4-10.4); Monocytes 16 % (0-10); Neutrophil 64 % (42-75); Ovalocytes SLIGHT = 2-5 cells (100X) (0-1/hpf); Platelet Count 214 10x3/uL (130-400); Platelet Morphology Comment Appears Adequate; RBC Distribution Width 14.8 % (11.5-14.5); Red Blood Cell (RBC) Count 2.61 mill/uL (4.70-6.10); Tear Drops SLIGHT = 2-5 cells (100X) (0-1/hpf); White Blood Cell (WBC) Count 15.9 10x3/uL (4.8-10.8)
[2022-06-20] MEDS: Lisinopril 10 MG TAB PO SCH ×2 (08:13→21:23)
[2022-06-20] MEDS: Metoprolol Tartrate 25 MG TAB PO SCH ×2 (08:13→21:23)
[2022-06-20] MEDS: Allopurinol 300 MG TAB PO SCH (08:13)
[2022-06-20] MEDS: QUEtiapine 25 MG TAB PO SCH ×2 (08:13→21:25)
[2022-06-20] MEDS: Ferrous Sulfate 325 MG TAB PO SCH (08:13)
[2022-06-20] MEDS: Donepezil HCl 10 MG TAB PO SCH (08:13)
[2022-06-20] MEDS: Folic Acid 1 MG TAB PO SCH (08:13)
[2022-06-20] MEDS: DorzolamidE/Timolol 2%/0.5% Ophth Soln 10 ml Bottle EA EYE SCH ×2 (08:14→16:02)
[2022-06-20] MEDS: Atorvastatin Calcium 40 MG TAB PO SCH (21:20)
[2022-06-20] MEDS: Latanoprost 0.005% Ophth Soln 2.5 ml Bottle EA EYE SCH (21:21)
[2022-06-20] MEDS: Polyvinyl Alcohol 1.4%/Povidone 0.6% Opth Drops EA EYE SCH (21:25)
[2022-06-20] MEDS: Acetaminophen 325 MG TAB PO PRN (21:27)
[2022-06-21] MEDS: Lisinopril 10 MG TAB PO SCH ×2 (00:19→09:51)
[2022-06-21] MEDS: Atorvastatin Calcium 40 MG TAB PO SCH (00:19)
[2022-06-21] MEDS: QUEtiapine 25 MG TAB PO SCH ×2 (00:20→09:52)
[2022-06-21] MEDS: Polyvinyl Alcohol 1.4%/Povidone 0.6% Opth Drops EA EYE SCH (00:20)
[2022-06-21] MEDS: Metoprolol Tartrate 25 MG TAB PO SCH ×2 (00:20→09:51)
[2022-06-21 05:05] LABS: #Basophils 0.1 thou/uL (0.0-0.2); #Eosinphils 0.2 thou/uL (0.0-0.7); #Lymphocytes 2.2 thou/uL (1.20-3.40); #Monocytes 1.7 thou/uL (0.11-0.59); #Neutrophils 9.1 thou/uL (1.40-6.50); %Basophils 0.4 % (0.0-1.0); %Eosinophils 1.4 % (0.0-10.0); %Lymphocytes 16.4 % (21.0-51.0); %Neutrophils 68.8 % (42.0-75.0); Mean Corpuscular HGB CONC 32.1 g/dL (32.0-36.0); Mean Corpuscular Hemoglobin 34.7 pg (27.0-31.0); Platelet Count 249 10x3/uL (130-400); RBC Distribution Width 14.7 % (11.5-14.5); Red Blood Cell (RBC) Count 2.88 mill/uL (4.70-6.10); White Blood Cell (WBC) Count 13.2 10x3/uL (4.8-10.8)
[2022-06-21 05:34] LABS: Anion Gap 13 mmol/L (10-20); BUN (Urea Nitrogen) 25 mg/dL (8.4-25.7); Calc. Creatinine Clearance 57 mL/min (70-130); Calcium 8.8 mg/dL (7.8-10.44); Carbon Dioxide 23 mmol/L (23-31); Chloride 104 mmol/L (98-107); Estimated GFR 86; Glucose 69 mg/dL (83-110); Sodium 136 mmol/L (136-145)
[2022-06-21 08:27] VITALS: BP 193/87; TEMP 98
[2022-06-21] MEDS: Ferrous Sulfate 325 MG TAB PO SCH (09:51)
[2022-06-21] MEDS: Allopurinol 300 MG TAB PO SCH (09:51)
[2022-06-21] MEDS: Folic Acid 1 MG TAB PO SCH (09:51)
[2022-06-21] MEDS: Donepezil HCl 10 MG TAB PO SCH (09:52)
[2022-06-21] MEDS: DorzolamidE/Timolol 2%/0.5% Ophth Soln 10 ml Bottle EA EYE SCH (09:52)
== END 2022-06-21 10:45 | DRG 56 ==
LOC: ERS 14:50 → ERHOLD 17:14 → 2NO 19:32
PROVIDERS: ADMIT Family Medicine; ATTEND Family Medicine
DX: G30.9 Alzheimer's disease, unspecified (principal); G93.41 Metabolic encephalopathy; F05 Delirium due to known physiological condition; F02.C11 Dementia in other diseases classified elsewhere, severe, with agitation; Z66 Do not resuscitate; Z20.822 Contact with and (suspected) exposure to COVID-19; I10 Essential (primary) hypertension; E78.5 Hyperlipidemia, unspecified; I25.10 Atherosclerotic heart disease of native coronary artery without angina pectoris; R29.6 Repeated falls; R77.8 Other specified abnormalities of plasma proteins; R00.1 Bradycardia, unspecified; D72.829 Elevated white blood cell count, unspecified; M19.90 Unspecified osteoarthritis, unspecified site; Z90.81 Acquired absence of spleen; Z78.1 Physical restraint status; Z86.73 Personal history of transient ischemic attack (TIA), and cerebral infarction without residual deficits; Z88.5 Allergy status to narcotic agent; Z88.8 Allergy status to other drugs, medicaments and biological substances; Z79.899 Other long term (current) drug therapy; Z98.890 Other specified postprocedural states; Z87.891 Personal history of nicotine dependence; Z91.81 History of falling; S06.5X0D Traumatic subdural hemorrhage without loss of consciousness, subsequent encounter; W18.30XD Fall on same level, unspecified, subsequent encounter
CPT/HCPCS: 36415; 70450; 70553; 71045; 80048; 80053; 81003; 82550; 82553; 83605; 83735; 84100; 84146; 84443; 84484; 85025; 85652; 86140; 87040; 93005; 93010; 93306; 95816; 95819; 95957; 96374; J0360; J2060; J3475; J7050; J8610; U0003; U0005

== ENCOUNTER 2022-07-06 20:24 | Emergency (ER) | payer MEDICARE, OTHER | END 2022-07-06 22:33 | LOC: ERS 20:24 | DX: S40.012A Contusion of left shoulder, initial encounter (principal); E78.5 Hyperlipidemia, unspecified; E78.00 Pure hypercholesterolemia, unspecified; I10 Essential (primary) hypertension; Z87.891 Personal history of nicotine dependence; W19.XXXA Unspecified fall, initial encounter | CPT/HCPCS: 99283 ==

== ENCOUNTER 2022-08-09 07:52 | Inpatient (IN) | payer OTHER ==
[2022-08-09] MEDS ORDERED: Heparin 10,000 UNITS/ 10 ML VIAL ONE ×2 (07:58→08:43)
[2022-08-09] MEDS ORDERED: NOREPINEPHRINE 8 MG/250 ML-D5W 250 ML ONE (07:58)
[2022-08-09] MEDS ORDERED: Ketamine In 0.9 % NaCl 50 MG/5 ML SYRINGE ONE (08:12)
[2022-08-09 08:40] LABS: Bacteria/HPF 2+ HPF (None Seen); Bilirubin Negative (Negative); Blood, Urine Negative (Negative); Clarity Clear (Clear); Glucose, Urine (Dipstick) Normal (Negative); Ketone, Urine Negative (Negative); Leukocyte 75 Leu/uL (Negative); Nitrite Negative (Negative); Protein, Urine (Dipstick) 50 mg/dL (Neg-Trace); RBC/HPF 0-3 HPF (0-3); Specific Gravity, Urine 1.019 (1.002-1.036); Squamous Epithelial None Seen HPF (0-3); Urobilinogen Normal mg/dL (Less than 2)
[2022-08-09] MEDS ORDERED: Aspirin 300 MG Suppository ONE (08:41)
[2022-08-09] MEDS ORDERED: Nitroglycerin 50 MG/250 ML BOT 0 ML ONE (08:42)
[2022-08-09] MEDS ORDERED: Verapamil 5 MG/2 ML VIAL ONE (08:42)
[2022-08-09] MEDS ORDERED: Lidocaine 1% (PF) 30 ML VIAL ONE (08:42)
[2022-08-09 08:45] LABS: ALT (SGPT) 33 U/L (8-55); Albumin 2.8 g/dL (3.4-4.8); Alkaline Phosphatase 100 U/L (40-110); BUN (Urea Nitrogen) 28 mg/dL (8.4-25.7); Bilirubin, Total 0.4 mg/dL (0.2-1.2); Calc. Creatinine Clearance 0 mL/min (70-130); Calcium 7.5 mg/dL (7.8-10.44); Carbon Dioxide 17 mmol/L (23-31); Chloride 116 mmol/L (98-107); Estimated GFR 56; Glucose 129 mg/dL (83-110); Sodium 144 mmol/L (136-145)
[2022-08-09 08:58] LABS: Anion Gap 15 mmol/L (10-20); Globulin 3.3 g/dL (2.4-3.5); Potassium 4.1 mmol/L (3.5-5.1); Protein, Total 6.1 g/dL (5.8-8.1)
[2022-08-09 09:01] LABS: AST (SGOT) 25 U/L (5-34)
[2022-08-09 09:09] LABS: CKMB 1.4 ng/mL (0-6.6)
[2022-08-09] MEDS ORDERED: fentaNYL 50 mcg/mL 1 mL Vial ONE (09:10)
[2022-08-09] MEDS ORDERED: Midazolam HCl 2 mg/2 ml Vial ONE (09:10)
[2022-08-09 09:12] LABS: #Basophils 0.1 thou/uL (0.0-0.2); #Eosinphils 0.3 thou/uL (0.0-0.7); #Lymphocytes 4.4 thou/uL (1.20-3.40); #Monocytes 1.6 thou/uL (0.11-0.59); #Neutrophils 6.5 thou/uL (1.40-6.50); %Basophils 0.8 % (0.0-1.0); %Lymphocytes 34.2 % (21.0-51.0); %Monocytes 12.4 % (0.0-10.0); %Neutrophils 50.6 % (42.0-75.0); Burr Cells SLIGHT = 2-5 cells (100X) (0-1/hpf); Hemoglobin 9.7 g/dL (14.0-18.0); MDiff Complete? YES; Mean Corpuscular HGB CONC 32.2 g/dL (32.0-36.0); Mean Corpuscular Hemoglobin 35.1 pg (27.0-31.0); Mean Platelet Volume 12.1 fL (7.4-10.4); Platelet Count 126 10x3/uL (130-400); Platelet Morphology Comment Appears Decreased; Polychromasia SLIGHT = 2-3 cells (100X) (0-2/hpf); RBC Distribution Width 15.7 % (11.5-14.5); Red Blood Cell (RBC) Count 2.75 mill/uL (4.70-6.10); Schistocytes SLIGHT = 2-5 cells (100X) (0-1/hpf); White Blood Cell (WBC) Count 12.8 10x3/uL (4.8-10.8)
[2022-08-09] MEDS ORDERED: Atropine Sulfate 1 mg/1 ml Vial ONE (09:21)
[2022-08-09] MEDS ORDERED: Sodium Chloride 0.9% 200 ML IV PRN (10:39)
[2022-08-09] MEDS ORDERED: Nitroglycerin 0.4 MG TAB (25 Tab Bottle) SL PRN (10:39)
[2022-08-09] MEDS ORDERED: Ondansetron PF 4 MG/2 ML Vial ONE (11:04)
[2022-08-09] MEDS ORDERED: HYDROcodone/Acetaminophen 5/325 mg Tablet PO PRN (12:25)
[2022-08-09 12:44] LABS: INR-International Normal Ratio 1.3; Prothrombin Time 16.6 sec (12.0-14.7)
[2022-08-09 12:45] LABS: PTT 36.3 sec (22.9-36.1)
[2022-08-09 14:20] LABS: Lactic Acid 1.6 mmol/L (0.5-2.2)
[2022-08-09 14:22] VITALS: BMI 3138.3
[2022-08-09] MEDS: Sodium Chloride 0.9% 1,000 ML IV SCH ×3 (15:07→21:48)
[2022-08-09] MEDS: cefTRIAXone\\ROCEPHIN 1 GM in Sodium Chloride 0.9% 100 ML IVPB SCH (15:07)
[2022-08-09] MEDS ORDERED: Iopamidol 370 76% 100 ML VIAL ONE (15:19)
[2022-08-09] MEDS: Lorazepam 2 MG/ML VIAL SLOW IVP PRN (20:16)
[2022-08-09] MEDS: OLANZapine 2.5 MG TAB PO SCH (21:35)
[2022-08-09] MEDS: busPIRone HCl 5 MG TAB PO SCH (21:37)
[2022-08-09] MEDS: QUEtiapine 25 MG TAB PO SCH (21:37)
[2022-08-09] MEDS ORDERED: Labetalol HCl 100 MG/20 ML VIAL SLOW IVP SCH (23:45)
[2022-08-10] MEDS: busPIRone HCl 5 MG TAB PO SCH ×3 (09:35→19:50)
[2022-08-10] MEDS: OLANZapine 2.5 MG TAB PO SCH ×2 (09:35→19:50)
[2022-08-10] MEDS: Donepezil HCl 10 MG TAB PO SCH (09:36)
[2022-08-10] MEDS: QUEtiapine 25 MG TAB PO SCH ×2 (09:36→19:50)
[2022-08-10] MEDS: Metoprolol Tartrate 25 MG TAB PO SCH ×2 (09:51→19:50)
[2022-08-10] MEDS: Aspirin 81 mg Enteric Coated Tablet PO SCH (09:51)
[2022-08-10] MEDS ORDERED: Sodium Chloride 0.9% 500 ML IV SCH (11:15)
[2022-08-10 11:26] LABS: Hemoglobin 9.1 g/dL (14.0-18.0); Mean Corpuscular HGB CONC 31.2 g/dL (32.0-36.0); Mean Corpuscular Hemoglobin 33.7 pg (27.0-31.0); Mean Platelet Volume 11.4 fL (7.4-10.4); Platelet Count 140 10x3/uL (130-400); RBC Distribution Width 15.6 % (11.5-14.5); Red Blood Cell (RBC) Count 2.71 mill/uL (4.70-6.10)
[2022-08-10 11:44] LABS: Anion Gap 12 mmol/L (10-20); BUN (Urea Nitrogen) 22 mg/dL (8.4-25.7); Band 15 % (5-11); Calc. Creatinine Clearance 42 mL/min (70-130); Calcium 7.9 mg/dL (7.8-10.44); Carbon Dioxide 21 mmol/L (23-31); Chloride 113 mmol/L (98-107); Estimated GFR 65; Glucose 127 mg/dL (83-110); Lymphocytes 10 % (21-51); MDiff Complete? YES; Macrocytosis SLIGHT = 6-15 cells (100X) (0-5/hpf); Monocytes 6 % (0-10); Neutrophil 69 % (42-75); Platelet Morphology Comment Appears Adequate; Polychromasia SLIGHT = 2-3 cells (100X) (0-2/hpf); Schistocytes SLIGHT = 2-5 cells (100X) (0-1/hpf); Sodium 142 mmol/L (136-145)
[2022-08-10] MEDS: cefTRIAXone\\ROCEPHIN 1 GM in Sodium Chloride 0.9% 100 ML IVPB SCH (14:27)
[2022-08-10] MEDS: Atorvastatin Calcium 40 MG TAB PO SCH (19:50)
[2022-08-10] MEDS ORDERED: Divalproex Sodium 125 mg Sprinkle Capsule PO SCH (21:00)
[2022-08-11 05:29] LABS: Anion Gap 13 mmol/L (10-20); BUN (Urea Nitrogen) 21 mg/dL (8.4-25.7); Calc. Creatinine Clearance 47 mL/min (70-130); Calcium 8.4 mg/dL (7.8-10.44); Carbon Dioxide 23 mmol/L (23-31); Chloride 110 mmol/L (98-107); Estimated GFR 74; Glucose 82 mg/dL (83-110); Potassium 4.5 mmol/L (3.5-5.1); Sodium 141 mmol/L (136-145)
[2022-08-11 05:35] LABS: Anisocytosis SLIGHT = 6-15 cells (100X) (0-5/hpf); Burr Cells SLIGHT = 2-5 cells (100X) (0-1/hpf); Hemoglobin 9.1 g/dL (14.0-18.0); Lymphocytes 13 % (21-51); MDiff Complete? YES; Macrocytosis MODERATE=16-30 cells (100X) (0-5/hpf); Mean Corpuscular HGB CONC 32.9 g/dL (32.0-36.0); Mean Corpuscular Hemoglobin 35.4 pg (27.0-31.0); Monocytes 15 % (0-10); Neutrophil 72 % (42-75); Platelet Count 121 10x3/uL (130-400); Platelet Morphology Comment Appears Decreased; RBC Distribution Width 15.5 % (11.5-14.5); Red Blood Cell (RBC) Count 2.57 mill/uL (4.70-6.10); Schistocytes SLIGHT = 2-5 cells (100X) (0-1/hpf); Target Cells SLIGHT = 2-5 cells (100X) (0-1/hpf)
[2022-08-11] MEDS: busPIRone HCl 5 MG TAB PO SCH ×3 (09:45→20:38)
[2022-08-11] MEDS: Donepezil HCl 10 MG TAB PO SCH (09:46)
[2022-08-11] MEDS: Metoprolol Tartrate 25 MG TAB PO SCH ×2 (09:46→20:37)
[2022-08-11] MEDS: QUEtiapine 25 MG TAB PO SCH ×2 (09:46→20:37)
[2022-08-11] MEDS: Aspirin 81 mg Enteric Coated Tablet PO SCH (09:46)
[2022-08-11] MEDS: OLANZapine 2.5 MG TAB PO SCH ×2 (09:48→20:38)
[2022-08-11] MEDS: cefTRIAXone\\ROCEPHIN 1 GM in Sodium Chloride 0.9% 100 ML IVPB SCH (11:25)
[2022-08-11] MEDS: Vancomycin 1 GM in Premix Bag 1 BAG IVPB SCH (17:41)
[2022-08-11] MEDS: Atorvastatin Calcium 40 MG TAB PO SCH (20:37)
[2022-08-11] MEDS: Cefepime 1 GM in Sodium Chloride 0.9% 100 ML IVPB SCH (20:39)
[2022-08-12 05:13] LABS: #Basophils 0.1 thou/uL (0.0-0.2); #Eosinphils 0.6 thou/uL (0.0-0.7); #Lymphocytes 2.8 thou/uL (1.20-3.40); #Monocytes 2.1 thou/uL (0.11-0.59); #Neutrophils 9.9 thou/uL (1.40-6.50); %Basophils 0.4 % (0.0-1.0); %Eosinophils 3.6 % (0.0-10.0); %Monocytes 13.9 % (0.0-10.0); %Neutrophils 64.1 % (42.0-75.0); Mean Corpuscular HGB CONC 32.5 g/dL (32.0-36.0); Mean Corpuscular Hemoglobin 35.1 pg (27.0-31.0); Mean Platelet Volume 11.8 fL (7.4-10.4); Platelet Count 118 10x3/uL (130-400); RBC Distribution Width 15.5 % (11.5-14.5); Red Blood Cell (RBC) Count 2.56 mill/uL (4.70-6.10); White Blood Cell (WBC) Count 15.4 10x3/uL (4.8-10.8)
[2022-08-12 05:40] LABS: Anion Gap 14 mmol/L (10-20); BUN (Urea Nitrogen) 23 mg/dL (8.4-25.7); Calc. Creatinine Clearance 57 mL/min (70-130); Calcium 8.2 mg/dL (7.8-10.44); Carbon Dioxide 17 mmol/L (23-31); Chloride 109 mmol/L (98-107); Estimated GFR 85; Glucose 65 mg/dL (83-110); Potassium 4.2 mmol/L (3.5-5.1); Sodium 136 mmol/L (136-145)
[2022-08-12] MEDS: QUEtiapine 25 MG TAB PO SCH ×2 (09:55→20:37)
[2022-08-12] MEDS: OLANZapine 2.5 MG TAB PO SCH ×2 (09:55→20:37)
[2022-08-12] MEDS: Metoprolol Tartrate 25 MG TAB PO SCH ×2 (09:55→20:37)
[2022-08-12] MEDS: Aspirin 81 mg Enteric Coated Tablet PO SCH (09:55)
[2022-08-12] MEDS: busPIRone HCl 5 MG TAB PO SCH ×3 (09:55→20:37)
[2022-08-12] MEDS: Donepezil HCl 10 MG TAB PO SCH (09:56)
[2022-08-12] MEDS: Cefepime 1 GM in Sodium Chloride 0.9% 100 ML IVPB SCH ×2 (09:56→20:39)
[2022-08-12] MEDS ORDERED: Lisinopril 5 MG TAB PO SCH (14:45)
[2022-08-12] MEDS: Vancomycin 1 GM in Premix Bag 1 BAG IVPB SCH (17:19)
[2022-08-12] MEDS: Atorvastatin Calcium 40 MG TAB PO SCH (20:37)
[2022-08-12] MEDS: Lisinopril 5 MG TAB PO SCH (20:38)
[2022-08-13 04:51] LABS: #Basophils 0.1 thou/uL (0.0-0.2); #Eosinphils 0.4 thou/uL (0.0-0.7); #Lymphocytes 2.8 thou/uL (1.20-3.40); #Monocytes 1.8 thou/uL (0.11-0.59); #Neutrophils 9.9 thou/uL (1.40-6.50); %Basophils 0.7 % (0.0-1.0); %Eosinophils 2.8 % (0.0-10.0); %Lymphocytes 18.4 % (21.0-51.0); %Monocytes 11.7 % (0.0-10.0); %Neutrophils 66.3 % (42.0-75.0); Hemoglobin 9.8 g/dL (14.0-18.0); Mean Corpuscular HGB CONC 34.5 g/dL (32.0-36.0); Mean Corpuscular Hemoglobin 36.5 pg (27.0-31.0); Mean Platelet Volume 11.7 fL (7.4-10.4); Platelet Count 151 10x3/uL (130-400); RBC Distribution Width 15.1 % (11.5-14.5); Red Blood Cell (RBC) Count 2.68 mill/uL (4.70-6.10); White Blood Cell (WBC) Count 14.9 10x3/uL (4.8-10.8)
[2022-08-13 05:05] LABS: Anion Gap 13 mmol/L (10-20); BUN (Urea Nitrogen) 25 mg/dL (8.4-25.7); Calc. Creatinine Clearance 49 mL/min (70-130); Calcium 8.5 mg/dL (7.8-10.44); Carbon Dioxide 23 mmol/L (23-31); Chloride 105 mmol/L (98-107); Estimated GFR 77; Glucose 92 mg/dL (83-110); Sodium 137 mmol/L (136-145)
[2022-08-13] MEDS: busPIRone HCl 5 MG TAB PO SCH ×3 (09:11→22:23)
[2022-08-13] MEDS: OLANZapine 2.5 MG TAB PO SCH ×2 (09:11→22:24)
[2022-08-13] MEDS: Aspirin 81 mg Enteric Coated Tablet PO SCH (09:11)
[2022-08-13] MEDS: Metoprolol Tartrate 25 MG TAB PO SCH ×2 (09:11→22:24)
[2022-08-13] MEDS: Donepezil HCl 10 MG TAB PO SCH (09:11)
[2022-08-13] MEDS: QUEtiapine 25 MG TAB PO SCH ×2 (09:11→22:25)
[2022-08-13] MEDS: Lisinopril 5 MG TAB PO SCH ×2 (09:12→22:24)
[2022-08-13] MEDS: Cefepime 1 GM in Sodium Chloride 0.9% 100 ML IVPB SCH (09:12)
[2022-08-13] MEDS: Cefdinir 300 MG CAP PO SCH (22:23)
[2022-08-13] MEDS: Atorvastatin Calcium 40 MG TAB PO SCH (22:23)
[2022-08-13] MEDS: Doxycycline 100 MG CAP PO SCH (22:25)
[2022-08-13] MEDS: Lorazepam 2 MG/ML VIAL SLOW IVP PRN (22:34)
[2022-08-14] MEDS ORDERED: hydrALAZINE 20 MG/ML VIAL SLOW IVP PRN (00:35)
[2022-08-14] MEDS: OLANZapine 2.5 MG TAB PO SCH ×2 (08:59→22:05)
[2022-08-14] MEDS: Lisinopril 5 MG TAB PO SCH ×2 (09:01→22:02)
[2022-08-14] MEDS: Cefdinir 300 MG CAP PO SCH ×2 (09:01→22:02)
[2022-08-14] MEDS: Metoprolol Tartrate 25 MG TAB PO SCH ×2 (09:01→22:06)
[2022-08-14] MEDS: Aspirin 81 mg Enteric Coated Tablet PO SCH ×2 (09:02→10:11)
[2022-08-14] MEDS: Donepezil HCl 10 MG TAB PO SCH (09:02)
[2022-08-14] MEDS: QUEtiapine 25 MG TAB PO SCH ×2 (09:02→22:06)
[2022-08-14] MEDS: Doxycycline 100 MG CAP PO SCH ×2 (09:02→22:02)
[2022-08-14] MEDS: busPIRone HCl 5 MG TAB PO SCH ×3 (09:02→22:02)
[2022-08-14 09:03] LABS: #Eosinphils 0.3 thou/uL (0.0-0.7); #Lymphocytes 2.4 thou/uL (1.20-3.40); #Monocytes 1.6 thou/uL (0.11-0.59); #Neutrophils 8.6 thou/uL (1.40-6.50); %Basophils 0.4 % (0.0-1.0); %Lymphocytes 18.5 % (21.0-51.0); %Monocytes 12.8 % (0.0-10.0); %Neutrophils 66.5 % (42.0-75.0); Hemoglobin 10.3 g/dL (14.0-18.0); Mean Corpuscular HGB CONC 31.8 g/dL (32.0-36.0); Mean Corpuscular Hemoglobin 33.4 pg (27.0-31.0); Mean Platelet Volume 11.1 fL (7.4-10.4); Platelet Count 187 10x3/uL (130-400); RBC Distribution Width 15.2 % (11.5-14.5); White Blood Cell (WBC) Count 12.9 10x3/uL (4.8-10.8)
[2022-08-14 09:24] LABS: Anion Gap 13 mmol/L (10-20); BUN (Urea Nitrogen) 25 mg/dL (8.4-25.7); Calc. Creatinine Clearance 48 mL/min (70-130); Calcium 8.5 mg/dL (7.8-10.44); Carbon Dioxide 24 mmol/L (23-31); Chloride 103 mmol/L (98-107); Estimated GFR 76; Glucose 118 mg/dL (83-110); Potassium 3.5 mmol/L (3.5-5.1); Sodium 136 mmol/L (136-145)
[2022-08-14] MEDS: Atorvastatin Calcium 40 MG TAB PO SCH (22:03)
[2022-08-15] MEDS ORDERED: Lisinopril 20 MG TAB PO SCH (09:00)
[2022-08-15] MEDS: OLANZapine 2.5 MG TAB PO SCH (09:14)
[2022-08-15] MEDS: Cefdinir 300 MG CAP PO SCH (09:16)
[2022-08-15] MEDS: Donepezil HCl 10 MG TAB PO SCH (09:17)
[2022-08-15] MEDS: QUEtiapine 25 MG TAB PO SCH (09:18)
[2022-08-15] MEDS: busPIRone HCl 5 MG TAB PO SCH ×2 (09:18→18:12)
[2022-08-15] MEDS: Doxycycline 100 MG CAP PO SCH (09:22)
[2022-08-15] MEDS: Metoprolol Tartrate 25 MG TAB PO SCH (09:22)
[2022-08-15 10:27] LABS: #Basophils 0.1 thou/uL (0.0-0.2); #Eosinphils 0.4 thou/uL (0.0-0.7); #Lymphocytes 2.5 thou/uL (1.20-3.40); #Monocytes 1.5 thou/uL (0.11-0.59); #Neutrophils 7.9 thou/uL (1.40-6.50); %Basophils 0.7 % (0.0-1.0); %Eosinophils 3.4 % (0.0-10.0); %Monocytes 12.2 % (0.0-10.0); %Neutrophils 63.8 % (42.0-75.0); Mean Corpuscular HGB CONC 32.6 g/dL (32.0-36.0); Mean Corpuscular Hemoglobin 34.5 pg (27.0-31.0); Mean Platelet Volume 11.2 fL (7.4-10.4); Platelet Count 191 10x3/uL (130-400); RBC Distribution Width 15.1 % (11.5-14.5); Red Blood Cell (RBC) Count 2.89 mill/uL (4.70-6.10); White Blood Cell (WBC) Count 12.5 10x3/uL (4.8-10.8)
[2022-08-15 10:29] LABS: Anion Gap 13 mmol/L (10-20); BUN (Urea Nitrogen) 25 mg/dL (8.4-25.7); Calc. Creatinine Clearance 53 mL/min (70-130); Calcium 8.4 mg/dL (7.8-10.44); Carbon Dioxide 23 mmol/L (23-31); Chloride 104 mmol/L (98-107); Estimated GFR 83; Glucose 128 mg/dL (83-110); Potassium 3.9 mmol/L (3.5-5.1); Sodium 136 mmol/L (136-145)
[2022-08-15 18:16] VITALS: BP 149/65; TEMP 98
== END 2022-08-15 19:58 | disposition home or self-care (01) | DRG 871 ==
LOC: ERS 07:52 → CCL 09:06 → 2NO 10:39
PROVIDERS: ADMIT Internal Medicine; ATTEND Internal Medicine
PROC: 3E03329 Introduction of Other Anti-infective into Peripheral Vein, Percutaneous Approach (ICD-10-PCS; principal; 2022-08-09)
PROC: 4A023N7 Measurement of Cardiac Sampling and Pressure, Left Heart, Percutaneous Approach (ICD-10-PCS; 2022-08-09)
PROC: B2111ZZ Fluoroscopy of Multiple Coronary Arteries using Low Osmolar Contrast (ICD-10-PCS; 2022-08-09)
PROC: B2151ZZ Fluoroscopy of Left Heart using Low Osmolar Contrast (ICD-10-PCS; 2022-08-09)
DX: A41.9 Sepsis, unspecified organism (principal); R65.20 Severe sepsis without septic shock; Z66 Do not resuscitate; G93.41 Metabolic encephalopathy; I62.03 Nontraumatic chronic subdural hemorrhage; J18.9 Pneumonia, unspecified organism; N39.0 Urinary tract infection, site not specified; F05 Delirium due to known physiological condition; I25.10 Atherosclerotic heart disease of native coronary artery without angina pectoris; G30.9 Alzheimer's disease, unspecified; I10 Essential (primary) hypertension; F02.80 Dementia in other diseases classified elsewhere, unspecified severity, without behavioral disturbance, psychotic disturbance, mood disturbance, and anxiety; E78.5 Hyperlipidemia, unspecified; I34.0 Nonrheumatic mitral (valve) insufficiency; Z88.5 Allergy status to narcotic agent; Z88.8 Allergy status to other drugs, medicaments and biological substances; Z79.82 Long term (current) use of aspirin; Z79.899 Other long term (current) drug therapy; Z79.02 Long term (current) use of antithrombotics/antiplatelets; Z86.73 Personal history of transient ischemic attack (TIA), and cerebral infarction without residual deficits; Z95.5 Presence of coronary angioplasty implant and graft; Z98.49 Cataract extraction status, unspecified eye; Z90.81 Acquired absence of spleen; Z98.890 Other specified postprocedural states
CPT/HCPCS: 36415; 36416; 36556; 51702; 71045; 80048; 80053; 81003; 81015; 82553; 83605; 84484; 85025; 85060; 85347; 85610; 85730; 87040; 87086; 93005; 93458; 94760; 96374; 96375; 99152; C1769; C1887; C1894; J0360; J0461; J0692; J0696; J1644; J2001; J2060; J2250; J2405; J3010; J3370-JW; J3490; J7050; Q9967

== ENCOUNTER 2022-08-26 23:29 | Inpatient (IN) | payer OTHER ==
[2022-08-26] MEDS ORDERED: VANCOMYCIN 1.25 GM/250 ML BAG 1.25 GM in Premix Bag 1 BAG IVPB SCH (23:45)
[2022-08-26] MEDS ORDERED: Cefepime 2 GM VIAL ONE (23:53)
[2022-08-26] MEDS ORDERED: Acetaminophen 500 MG TAB ONE (23:53)
[2022-08-27] MEDS ORDERED: Acetaminophen 650 MG Suppository ONE (00:05)
[2022-08-27 00:10] LABS: Hemoglobin 11.8 g/dL (14.0-18.0)
[2022-08-27 00:14] LABS: #Eosinphils 0.1 thou/uL (0.0-0.7); #Lymphocytes 1.1 thou/uL (1.20-3.40); #Monocytes 1.5 thou/uL (0.11-0.59); #Neutrophils 16.8 thou/uL (1.40-6.50); %Basophils 0.1 % (0.0-1.0); %Eosinophils 0.4 % (0.0-10.0); %Lymphocytes 5.5 % (21.0-51.0); %Monocytes 7.8 % (0.0-10.0); %Neutrophils 86.2 % (42.0-75.0); Mean Corpuscular HGB CONC 31.6 g/dL (32.0-36.0); Platelet Count 239 10x3/uL (130-400); RBC Distribution Width 15.5 % (11.5-14.5); Red Blood Cell (RBC) Count 3.57 mill/uL (4.70-6.10); White Blood Cell (WBC) Count 19.5 10x3/uL (4.8-10.8)
[2022-08-27 00:35] LABS: Critical Call Chem Troponin I RESULT DECREASING
[2022-08-27 00:46] LABS: Bacteria/HPF None Seen HPF (None Seen); Bilirubin Negative (Negative); Blood, Urine 3+ (Negative); Clarity Clear (Clear); Glucose, Urine (Dipstick) Normal (Negative); Ketone, Urine Negative (Negative); Leukocyte Negative Leu/uL (Negative); Nitrite Negative (Negative); Protein, Urine (Dipstick) 50 mg/dL (Neg-Trace); RBC/HPF 0-3 HPF (0-3); Specific Gravity, Urine 1.014 (1.002-1.036); Squamous Epithelial None Seen HPF (0-3); Urobilinogen Normal mg/dL (Less than 2); WBC/HPF 0-3 HPF (0-3)
[2022-08-27 00:48] LABS: ALT (SGPT) 40 U/L (8-55); AST (SGOT) 57 U/L (5-34); Albumin 3.7 g/dL (3.4-4.8); Alkaline Phosphatase 161 U/L (40-110); Anion Gap 19 mmol/L (10-20); BUN (Urea Nitrogen) 27 mg/dL (8.4-25.7); Calc. Creatinine Clearance 0 mL/min (70-130); Carbon Dioxide 24 mmol/L (23-31); Chloride 108 mmol/L (98-107); Estimated GFR 42; Globulin 4.6 g/dL (2.4-3.5); Glucose 118 mg/dL (83-110); Lipase 34 U/L (8-78); Potassium 5.4 mmol/L (3.5-5.1); Protein, Total 8.3 g/dL (5.8-8.1); Sodium 146 mmol/L (136-145)
[2022-08-27 00:53] LABS: CKMB 36.6 ng/mL (0-6.6)
[2022-08-27] MEDS ORDERED: Aspirin 300 MG Suppository ONE (00:57)
[2022-08-27] MEDS ORDERED: Labetalol HCl 100 MG/20 ML VIAL ONE (02:05)
[2022-08-27] MEDS ORDERED: metroNIDAZOLE 500 MG/100 ML BAG ONE (02:06)
[2022-08-27] MEDS ORDERED: Acetaminophen 325 MG TAB PO PRN (02:14)
[2022-08-27] MEDS ORDERED: Ondansetron PF 4 MG/2 ML Vial IVP PRN (02:14)
[2022-08-27] MEDS ORDERED: Sodium Chloride 0.9% 1,000 ML IV SCH (02:30)
[2022-08-27 03:32] LABS: #Lymphocytes 1.3 thou/uL (1.20-3.40); #Monocytes 1.3 thou/uL (0.11-0.59); #Neutrophils 11.7 thou/uL (1.40-6.50); %Basophils 0.3 % (0.0-1.0); %Eosinophils 0.2 % (0.0-10.0); %Lymphocytes 8.9 % (21.0-51.0); %Monocytes 9.3 % (0.0-10.0); %Neutrophils 81.3 % (42.0-75.0); Mean Corpuscular HGB CONC 32.4 g/dL (32.0-36.0); Mean Corpuscular Hemoglobin 33.7 pg (27.0-31.0); Mean Platelet Volume 9.8 fL (7.4-10.4); Platelet Count 205 10x3/uL (130-400); Red Blood Cell (RBC) Count 2.97 mill/uL (4.70-6.10); White Blood Cell (WBC) Count 14.4 10x3/uL (4.8-10.8)
[2022-08-27 03:41] LABS: Lactic Acid 1.3 mmol/L (0.5-2.2)
[2022-08-27 04:01] LABS: ALT (SGPT) 47 U/L (8-55); AST (SGOT) 121 U/L (5-34); Albumin 2.6 g/dL (3.4-4.8); Alkaline Phosphatase 109 U/L (40-110); Anion Gap 15 mmol/L (10-20); BUN (Urea Nitrogen) 29 mg/dL (8.4-25.7); Bilirubin, Total 0.7 mg/dL (0.2-1.2); Calc. Creatinine Clearance 0 mL/min (70-130); Calcium 7.4 mg/dL (7.8-10.44); Carbon Dioxide 19 mmol/L (23-31); Chloride 114 mmol/L (98-107); Estimated GFR 51; Globulin 3.2 g/dL (2.4-3.5); Glucose 105 mg/dL (83-110); Potassium 4.5 mmol/L (3.5-5.1); Protein, Total 5.8 g/dL (5.8-8.1); Sodium 143 mmol/L (136-145)
[2022-08-27] MEDS ORDERED: Calcium Carbonate 500 MG ChewTAB PO PRN (08:19)
[2022-08-27] MEDS ORDERED: Acetaminophen 650 MG Suppository PR PRN (08:19)
[2022-08-27] MEDS ORDERED: Iopamidol-370 76% 500 ML MDV (1 ML CHARGE) ONE (08:45)
[2022-08-27] MEDS ORDERED: Famotidine/PF 20 mg/2ml Vial SLOW IVP SCH (09:00)
[2022-08-27] MEDS ORDERED: Heparin 5,000 UNITS/ML VIAL SC SCH (09:00)
[2022-08-27] MEDS ORDERED: Famotidine 20 MG TAB PO SCH (09:00)
[2022-08-27] MEDS ORDERED: Metoprolol Tartrate 25 MG TAB PO SCH (09:00)
[2022-08-27 09:31] LABS: Troponin I 4.151 ng/mL (< 0.028)
[2022-08-27] MEDS: Dextrose 5%-Lactated Ringers 1,000 ML IV SCH (10:27)
[2022-08-27] MEDS ORDERED: Famotidine/PF 20 mg/2ml Vial ONE (13:48)
[2022-08-27] MEDS ORDERED: Ondansetron PF 4 MG/2 ML Vial ONE (13:48)
[2022-08-27] MEDS ORDERED: Cefepime 1 GM VIAL ONE (13:50)
[2022-08-27] MEDS: Famotidine/PF 20 mg/2ml Vial SLOW IVP SCH (13:52)
[2022-08-27] MEDS: Cefepime 1 GM in Sodium Chloride 0.9% 100 ML IVPB SCH ×2 (13:52→23:25)
[2022-08-27] MEDS: Famotidine 20 MG TAB PO SCH (13:52)
[2022-08-27] MEDS: DorzolamidE/Timolol 2%/0.5% Ophth Soln 10 ml Bottle EA EYE SCH ×2 (13:52→17:17)
[2022-08-27] MEDS: Metoprolol Tartrate 25 MG TAB PO SCH ×2 (13:53→21:08)
[2022-08-27 13:57] LABS: CRP (Inflammatory) 7.74 mg/dL (= or < 0.5); Phosphorus 4.2 mg/dL (2.3-4.7)
[2022-08-27] MEDS: Saccharomyces boulardii 250 MG CAP PO SCH (14:05)
[2022-08-27] MEDS ORDERED: Nitroglycerin 2% Ointment 1 INCH/1 GM Packet ONE (14:07)
[2022-08-27] MEDS: Nitroglycerin 2% Ointment 1 INCH/1 GM Packet TOP SCH ×2 (14:08→21:06)
[2022-08-27] MEDS: metroNIDAZOLE 500 MG in Premix Bag 1 BAG IVPB SCH ×2 (17:17→17:18)
[2022-08-27 17:31] VITALS: BMI 21.1
[2022-08-27] MEDS ORDERED: OLANZapine 2.5 MG TAB PO SCH (21:00)
[2022-08-27] MEDS: Atorvastatin Calcium 40 MG TAB PO SCH (21:06)
[2022-08-27] MEDS: Latanoprost 0.005% Ophth Soln 2.5 ml Bottle EA EYE SCH ×2 (21:06→21:35)
[2022-08-27] MEDS: Donepezil HCl 10 MG TAB PO SCH (21:06)
[2022-08-27] MEDS: Polyvinyl Alcohol 1.4%/Povidone 0.6% Opth Drops EA EYE SCH (21:35)
[2022-08-27] MEDS ORDERED: Vancomycin 1 GM in Premix Bag 1 BAG IVPB SCH (22:00)
[2022-08-28] MEDS: metroNIDAZOLE 500 MG in Premix Bag 1 BAG IVPB SCH ×2 (01:55→10:46)
[2022-08-28] MEDS: Dextrose 5%-Lactated Ringers 1,000 ML IV SCH ×2 (05:50→22:19)
[2022-08-28] MEDS: Nitroglycerin 2% Ointment 1 INCH/1 GM Packet TOP SCH ×3 (05:51→21:04)
[2022-08-28 09:11] LABS: Phosphorus 3.5 mg/dL (2.3-4.7)
[2022-08-28 09:12] LABS: ALT (SGPT) 62 U/L (8-55); AST (SGOT) 166 U/L (5-34); Albumin 2.4 g/dL (3.4-4.8); Alkaline Phosphatase 92 U/L (40-110); Anion Gap 10 mmol/L (10-20); BUN (Urea Nitrogen) 35 mg/dL (8.4-25.7); Bilirubin, Total 0.5 mg/dL (0.2-1.2); Calc. Creatinine Clearance 30 mL/min (70-130); Calcium 7.9 mg/dL (7.8-10.44); Carbon Dioxide 24 mmol/L (23-31); Chloride 114 mmol/L (98-107); Estimated GFR 46; Glucose 82 mg/dL (83-110); Magnesium 1.6 mg/dL (1.6-2.6); Potassium 4.1 mmol/L (3.5-5.1); Protein, Total 5.4 g/dL (5.8-8.1); Sodium 144 mmol/L (136-145)
[2022-08-28 09:56] LABS: Hemoglobin 10.1 g/dL (14.0-18.0); Mean Corpuscular HGB CONC 33.5 g/dL (32.0-36.0); Mean Platelet Volume 10.8 fL (7.4-10.4); Platelet Count 141 10x3/uL (130-400); RBC Distribution Width 16.2 % (11.5-14.5); Red Blood Cell (RBC) Count 2.88 mill/uL (4.70-6.10); White Blood Cell (WBC) Count 10.1 10x3/uL (4.8-10.8)
[2022-08-28] MEDS: DorzolamidE/Timolol 2%/0.5% Ophth Soln 10 ml Bottle EA EYE SCH ×2 (10:46→16:57)
[2022-08-28] MEDS: Famotidine/PF 20 mg/2ml Vial SLOW IVP SCH (10:47)
[2022-08-28] MEDS: Famotidine 20 MG TAB PO SCH (10:53)
[2022-08-28] MEDS: Metoprolol Tartrate 25 MG TAB PO SCH ×3 (10:53→20:16)
[2022-08-28] MEDS: Cefepime 1 GM in Sodium Chloride 0.9% 100 ML IVPB SCH (11:47)
[2022-08-28 12:28] LABS: Band 12 % (5-11); Burr Cells SLIGHT = 2-5 cells (100X) (0-1/hpf); Eosinophils 5 % (0-10); Lymphocytes 32 % (21-51); MDiff Complete? YES; Monocytes 14 % (0-10); Neutrophil 37 % (42-75); Platelet Morphology Comment Appears Adequate; Polychromasia SLIGHT = 2-3 cells (100X) (0-2/hpf); Schistocytes MODERATE= 6-15 cells (100X) (0-1/hpf)
[2022-08-28] MEDS: Saccharomyces boulardii 250 MG CAP PO SCH ×2 (16:57→17:06)
[2022-08-28] MEDS: Atorvastatin Calcium 40 MG TAB PO SCH ×2 (20:09→20:15)
[2022-08-28] MEDS: Donepezil HCl 10 MG TAB PO SCH ×2 (20:09→20:18)
[2022-08-28] MEDS: hydrALAZINE 25 MG TAB PO SCH ×2 (20:09→20:17)
[2022-08-28] MEDS ORDERED: hydrALAZINE 20 MG/ML VIAL SLOW IVP SCH (20:45)
[2022-08-28] MEDS: Latanoprost 0.005% Ophth Soln 2.5 ml Bottle EA EYE SCH (21:04)
[2022-08-28] MEDS: Polyvinyl Alcohol 1.4%/Povidone 0.6% Opth Drops EA EYE SCH (21:05)
[2022-08-28 21:48] LABS: Vancomycin, Trough 12.8 ug/mL
[2022-08-28] MEDS ORDERED: VANCOMYCIN 1.25 GM/250 ML BAG 1.25 GM in Premix Bag 1 BAG IVPB SCH (22:00)
[2022-08-29] MEDS ORDERED: Sterile Water 10 ML VIAL FS SCH (00:15)
[2022-08-29] MEDS ORDERED: OLANZapine 10 MG VIAL IM SCH (00:15)
[2022-08-29] MEDS: Cefepime 1 GM in Sodium Chloride 0.9% 100 ML IVPB SCH ×2 (00:37→12:16)
[2022-08-29] MEDS: Nitroglycerin 2% Ointment 1 INCH/1 GM Packet TOP SCH ×2 (05:45→14:50)
[2022-08-29 09:18] LABS: ALT (SGPT) 55 U/L (8-55); AST (SGOT) 140 U/L (5-34); Albumin 2.5 g/dL (3.4-4.8); Alkaline Phosphatase 97 U/L (40-110); Anion Gap 11 mmol/L (10-20); BUN (Urea Nitrogen) 29 mg/dL (8.4-25.7); Bilirubin, Total 0.5 mg/dL (0.2-1.2); Calc. Creatinine Clearance 43 mL/min (70-130); Calcium 7.9 mg/dL (7.8-10.44); Carbon Dioxide 23 mmol/L (23-31); Chloride 113 mmol/L (98-107); Estimated GFR 68; Glucose 83 mg/dL (83-110); Potassium 3.4 mmol/L (3.5-5.1); Protein, Total 5.5 g/dL (5.8-8.1); Sodium 144 mmol/L (136-145)
[2022-08-29] MEDS: Famotidine 20 MG TAB PO SCH ×2 (09:21→10:28)
[2022-08-29 10:01] LABS: Hemoglobin 9.9 g/dL (14.0-18.0); Mean Platelet Volume 11.8 fL (7.4-10.4); Platelet Count 115 10x3/uL (130-400); RBC Distribution Width 15.9 % (11.5-14.5); Red Blood Cell (RBC) Count 2.92 mill/uL (4.70-6.10); White Blood Cell (WBC) Count 12.2 10x3/uL (4.8-10.8)
[2022-08-29 10:02] LABS: Band 14 % (5-11); Eosinophils 6 % (0-10); Lymphocytes 14 % (21-51); MDiff Complete? YES; Monocytes 10 % (0-10); Neutrophil 56 % (42-75); Nucleated RBC 1 % (0); Platelet Morphology Comment Appears Decreased; Polychromasia SLIGHT = 2-3 cells (100X) (0-2/hpf); Schistocytes MARKED= >16 cells (100X) (0-1/hpf)
[2022-08-29] MEDS: DorzolamidE/Timolol 2%/0.5% Ophth Soln 10 ml Bottle EA EYE SCH ×2 (10:26→17:08)
[2022-08-29] MEDS: Metoprolol Tartrate 25 MG TAB PO SCH (10:27)
[2022-08-29] MEDS: hydrALAZINE 25 MG TAB PO SCH ×2 (10:27→14:50)
[2022-08-29] MEDS: Famotidine/PF 20 mg/2ml Vial SLOW IVP SCH (10:37)
[2022-08-29] MEDS: Saccharomyces boulardii 250 MG CAP PO SCH (14:50)
[2022-08-29 17:48] VITALS: BP 170/61; TEMP 96.9
== END 2022-08-29 19:38 | disposition hospice, inpatient (51) | DRG 871 ==
LOC: ERS 23:29 → ERHOLD 08-27 02:14 → 2NO 08-27 14:34 → T4-B 08-28 17:56
PROVIDERS: ADMIT Internal Medicine; ATTEND Internal Medicine
DX: A41.9 Sepsis, unspecified organism (principal); I21.4 Non-ST elevation (NSTEMI) myocardial infarction; N17.9 Acute kidney failure, unspecified; I50.32 Chronic diastolic (congestive) heart failure; E87.0 Hyperosmolality and hypernatremia; I82.433 Acute embolism and thrombosis of popliteal vein, bilateral; I82.413 Acute embolism and thrombosis of femoral vein, bilateral; I82.442 Acute embolism and thrombosis of left tibial vein; Z51.5 Encounter for palliative care; Z66 Do not resuscitate; R65.20 Severe sepsis without septic shock; G30.9 Alzheimer's disease, unspecified; I25.10 Atherosclerotic heart disease of native coronary artery without angina pectoris; I11.0 Hypertensive heart disease with heart failure; E78.5 Hyperlipidemia, unspecified; D64.9 Anemia, unspecified; E86.0 Dehydration; N40.1 Benign prostatic hyperplasia with lower urinary tract symptoms; R33.8 Other retention of urine; E87.5 Hyperkalemia; K76.89 Other specified diseases of liver; F02.C0 Dementia in other diseases classified elsewhere, severe, without behavioral disturbance, psychotic disturbance, mood disturbance, and anxiety; Z79.899 Other long term (current) drug therapy; Z88.5 Allergy status to narcotic agent; Z88.8 Allergy status to other drugs, medicaments and biological substances; Z86.73 Personal history of transient ischemic attack (TIA), and cerebral infarction without residual deficits; Z79.82 Long term (current) use of aspirin; Z79.02 Long term (current) use of antithrombotics/antiplatelets; Z98.49 Cataract extraction status, unspecified eye; Z90.81 Acquired absence of spleen; M10.9 Gout, unspecified
CPT/HCPCS: 36415; 51701; 71045; 71260; 74177; 80053; 80202; 81003; 81015; 82553; 83605; 83690; 83735; 83880; 84100; 84443; 84484; 85025; 85060; 86140; 87040; 87086; 93005; 93970; 96365; 96366; 96367; 96374; 96375; J0360; J0692; J2405; J3370; J3370-JW; J3490; J7050; Q9967; S0028